=== PATIENT | female | born 1980 | race Caucasian/White ===

== ENCOUNTER 2017-01-02 16:32 | Outpatient (CLI) | payer BC | END 2017-01-02 17:27 | disposition home or self-care (01) | LOC: FBPOP 16:32 | PROVIDERS: ATTEND Obstetrics & Gynecology | DX: O99.89 Other specified diseases and conditions complicating pregnancy, childbirth and the puerperium (principal); R51 Headache; Z3A.35 35 weeks gestation of pregnancy; Z87.898 Personal history of other specified conditions | CPT/HCPCS: 59025; 81050; 84156; 87081; 99215 ==

== ENCOUNTER 2017-01-23 22:02 | Inpatient (IN) | payer BC ==
[2017-01-23 22:44] LABS: Appearance,Urine Clear (Clear); Bilirubin,Urine Negative (Negative); Glucose,Urine (UA) Negative (Negative); Ketones,Urine Trace (Negative); Leukocyte Esterase,Urine Negative (Negative); Nitrite,Urine Negative (Negative); Protein,Urine Negative (Negative); Specific Gravity,Urine 1.004 (1.001-1.035); UA Billing (MACRO vs. MICRO) CHEM; Urobilinogen,Urine <2.0 mg/dL (<2.0)
[2017-01-23 22:55] LABS: Basophils % (A) 0 %; CH 33.8; CHCM 35.1; Eosinophils # (A) 0.1 k/uL (0-0.7); Eosinophils % (A) 1 %; HCT 40.5 % (34.0-46.0); HDW 2.95; HGB 13.9 gm/dL (11.4-16.0); Luc # (Auto) 0.15; Luc % (Auto) 2; Lymphocytes # (A) 1.5 k/uL (1.0-4.8); Lymphocytes % (A) 19 %; MCH 33.2 pg (25.0-35.0); MCHC 34.3 g/dL (31.0-37.0); MCV 96.9 fL (80.0-100.0); Mean Platelet Volume 10.3; Monocytes # (A) 0.3 k/uL (0-1.0); Monocytes % (A) 4 %; Neutrophils # (A) 5.7 k/uL (1.3-7.7); Neutrophils % (A) 74 %; RBC 4.17 m/uL (3.80-5.40); RDW 15.6 % (11.5-15.5); WBC 7.7 k/uL (3.8-10.6); WBC (Perox) 7.87
[2017-01-23 23:00] LABS: ALT 33 U/L (9-52); AST 23 U/L (14-36); Blood Urea Nitrogen 7 mg/dL (7-17); LDH 438 U/L (313-618); Non-African American GFR(MDRD) >60 (>60 ml/min/1.73 sqM); Uric Acid 7.1 mg/dL (3.7-7.4)
[2017-01-23] MEDS ORDERED: LACTATED RINGERS 1,000 ML IV ONE (23:43)
[2017-01-24 01:29] LABS: Basophils % (A) 0 %; CH 33.7; CHCM 34.6; Eosinophils # (A) 0.1 k/uL (0-0.7); Eosinophils % (A) 1 %; HDW 2.88; HGB 13.8 gm/dL (11.4-16.0); Luc # (Auto) 0.11; Luc % (Auto) 2; Lymphocytes # (A) 1.4 k/uL (1.0-4.8); Lymphocytes % (A) 20 %; MCH 32.9 pg (25.0-35.0); MCHC 33.5 g/dL (31.0-37.0); MCV 98.2 fL (80.0-100.0); Macrocytosis Slight; Mean Platelet Volume 10.3; Monocytes # (A) 0.3 k/uL (0-1.0); Monocytes % (A) 4 %; Neutrophils # (A) 5.2 k/uL (1.3-7.7); Neutrophils % (A) 74 %; RBC 4.18 m/uL (3.80-5.40); RDW 15.6 % (11.5-15.5); WBC 7.1 k/uL (3.8-10.6); WBC (Perox) 7.61
[2017-01-24 01:36] LABS: INR 0.9 (<1.1); Partial Thromboplastin Time 22.5 sec (22.0-30.0); Prothrombin Time 9.5 sec (9.0-12.0)
[2017-01-24] MEDS: MISOPROSTOL 25 MCG TAB VAGINAL SCH ×2 (07:30→10:33)
--- NOTE | 2017-01-24 08:00 | P.HPOB ---
History of Present Illness H&P Date: 01/24/17 This is a 36-year-old white female 3 para 1011 EDC 02/04/2017 at 38-4/7 weeks' gestation. Patient presented with a history of chronic hypertension, on labetalol 100 mg 3 times daily. She has been taking her blood pressures at home , and noticed last night her blood pressure to be 170 over 107. She presented to labor and delivery at which time her blood pressure was noted to be 181/95. Fetus is been active throughout the . She denies fluid leakage or vaginal bleeding. She has visual disturbances in the periphery of both eyes, but denies headache or right upper quadrant pain. Past surgical history is significant for cold knife conization of the cervix 2004, breast reduction 2010. Current medications labetalol 100 mg 3 times daily, vitamins daily, Synthroid 88 MCG daily. Past obstetric history: Blood type is O+, rubella status immune. Group B strep cultures negative, gonorrhea and chlamydia cultures negative, Pap smear negative. HIV testing negative. One-hour Glucola 147, three-hour GTT within normal limits. Informed received testing negative. Social history patient is , she is a nonsmoker, she denies alcohol or drug use. ALLERGIES none known. Medical history is significant for chronic hypertension and hypothyroidism. On exam this is a pleasant white female, 5 foot 3 inches, 240 pounds, blood pressure currently 147/87. Patient is afebrile. Blood pressures through the night have ranged from the 160s to 140s over 60s to 90s range. Chest is clear in all duenas. Extremities reveal +1 edema. There are 1+ reflexes noted. Fundal height is 38 cm, infant is vertex to Sam's maneuvers. heart rate is in the 140s with overall good variability, reactive NST noted previously. Cervix is 1 cm dilated, posterior, -3 station, vertex presentation , 50% effaced. I have attempted artificial amniorrhexis 3 times without success. Therefore Cytotec 25 MCG's is placed posterior to the cervix in an attempt to begin induction. Labs include platelets of 145,000, elevated uric acid at 7.1, the remainder of the labs are within normal limits. Impression: 38-4/7 weeks intrauterine , chronic hypertension with superimposed preeclampsia, unfavorable cervix. Plan: Cytotec per hospital protocol. I will attempt artificial amniorrhexis later in the morning. Anticipating normal spontaneous vaginal delivery. Close attention to maternal blood pressure with pharmaceutical intervension as needed. Anesthesia staff aware. Review of Systems Negative except as in HPI Past Medical History Past Medical History: Hypertension, Thyroid Disorder History of Any Multi-Drug Resistant Organisms: None Reported Past Surgical History: No Surgical Hx Reported Additional Past Surgical History / Comment(s): breast reduction 2010, cold knife conization of the cervix 2004 Past Anesthesia/Blood Transfusion Reactions: Postoperative Nausea & Vomiting ( PONV) Past Psychological History: No Psychological Hx Reported Smoking Status: Never smoker Past Alcohol Use History: None Reported Past Drug Use History: None Reported - Past Family History Father Family Medical History: Hypertension Mother Family Medical History: Hypertension Medications and Allergies Home Medications Medication Instructions Recorded Confirmed Type Levothyroxine Sodium [Synthroid] 88 mcg PO DAILY 06/03/16 01/23/17 History Pnv with Ca,No.72/Iron/FA 1 each PO DAILY 06/03/16 01/23/17 History [ Plus Tablet] Labetalol [Trandate] 100 mg PO TID 01/23/17 01/23/17 History Allergies Allergy/AdvReac Type Severity Reaction Status Date / Time No Known Allergies Allergy Verified 01/23/17 22:12 Exam - Vital Signs Vital signs: Vital Signs BP 01/23/17 23:43 161/76 Intake and Output 01/23/17 01/24/17 01/24/17 22:59 06:59 14:59 Other: # Voids 2 Weight 108.862 kg See my dictation, please Results Result Diagrams: 01/24/17 00:00 01/23/17 22:40 Abnormal Lab Results - Last 24 Hours (Table) 01/23/17 01/23/17 01/24/17 Range/Units 22:36 22:40 00:00 RDW 15.6 H 15.6 H (11.5-15.5) % Plt Count 148 L 145 L (150-450) k/uL Urine Ketones Trace H (Negative) Assessment and Plan Plan: I am unable to perform artificial amniorrhexis due to unfavorable cervix. Cytotec 25 MCG's has therefore been placed, and we will repeat this every 3 hours until active labor. Anesthesia staff is aware of the patient's status. Anticipating normal spontaneous vaginal delivery. Time with Patient: Greater than 30
[2017-01-24] MEDS ORDERED: OXYTOCIN 10 UNIT/ML 1 ML VIAL IM PRN (09:23)
[2017-01-24] MEDS ORDERED: CARBOPROST TROMETHAMINE 250 MCG/ML 1 ML AMP IM PRN (09:23)
[2017-01-24] MEDS ORDERED: TERBUTALINE 1 MG/ML VIAL SQ PRN (09:23)
[2017-01-24] MEDS ORDERED: METHYLERGONOVINE 0.2 MG/ML 1 ML AMP IM PRN (09:23)
[2017-01-24] MEDS ORDERED: LIDOCAINE 1% (PF) 10 MG/ML (30 ML SDV) SQ PRN (09:23)
[2017-01-24] MEDS ORDERED: LACTATED RINGERS 1,000 ML IV SCH (09:30)
[2017-01-24] MEDS: LACTATED RINGERS 1,000 ML IV SCH ×2 (10:43→15:00)
[2017-01-24] MEDS: OXYTOCIN 30 UNITS/500 ML NS 30 UNIT in SALINE 1 500ML.BAG IV SCH (12:10)
[2017-01-24] MEDS ORDERED: SODIUM CHLORIDE 0.9% 100 ML BAG ONE (13:40)
[2017-01-24] MEDS ORDERED: fentaNYL (PF) 50 MCG/ML 5 ML AMP ONE (13:40)
[2017-01-24] MEDS ORDERED: BUPIVACAINE (PF) 0.25% 30 ML VIAL ONE (13:40)
[2017-01-24] MEDS ORDERED: BUPIVACAINE (PF) 0.25% 25 ML, fentaNYL (PF) 200 MCG in SODIUM CHLORIDE 0.9% 71 ML EPIDURAL ONE (15:46)
--- NOTE | 2017-01-24 18:01 | P.PROBDLV ---
Vaginal Delivery Note - . Vaginal Delivery Note: This is a 36-year-old white female 3 para 1011 EDC 02/04/2017 at 38-4/7 weeks' gestation. Patient presented to labor and delivery with a blood pressure at home of 170/107. On admission here, her blood pressure was noted to be 181/95. Labs were drawn, and this included an elevated uric acid and a platelet count of 145,000. Decision was made to proceed with delivery. Please see my admitting H&P for details. Cervix was unfavorable, Cytotec was placed 2, 25 MCG's intravaginally. Artificial amniorrhexis was then performed for clear fluid. Oxytocin was started and titrated per hospital protocol. Epidural was requested and this was placed without difficulty. Blood pressures in labor settled into the 140s over 70s range. Patient became cut lately dilated at 741. The perineal body was prepped and draped in usual sterile fashion. heart tones were reassuring with variable decelerations noted in the lateral part of the first stage of labor. With 3 pushes, 's head delivered occiput anterior and she restituted accordingly. There was a nuchal cord 1 that was reduced on the perineal body. The oropharynx, nasopharynx and external nares were bulb suctioned on the perineal body. Left or anterior shoulder was gently and easily delivered. Patient was officially delivered of a liveborn female at 1744 hours. Umbilical cord was doubly clamped and ligated, she was handed to waiting nurses for evaluation where scores of 9 and 9 at one and 5 minutes respectively were given. Placenta delivered spontaneously, it was noted to be small, but intact with trivascular cord at 1747 hours. On the perineal body was redraped. Inspection of the cervix, vagina, perineum, periurethral, and perirectal areas revealed a small 1 cm right inner labial laceration that was repaired in the usual fashion with a single [id number] suture of 3-0 Vicryl suture. Fundus is firm and in the midline, symmetric and 18 week size upon completion of delivery. Blood pressure 142/74 at the end of delivery. All sponge needle and enhancement counts are correct. weighed 2620 g or 5 lbs. 12 oz. The and family were allowed to begin the bonding experience in the LDR. Blood pressures will be monitored at this time. Consideration for magnesium sulfate will be given, however blood pressure stabilization at this time is noted. We will restart labetalol 100 mg orally twice daily.
[2017-01-24] MEDS ORDERED: Acetaminophen-Codeine 300-30mg TAB PO PRN (18:02)
[2017-01-24] MEDS ORDERED: ACETAMINOPHEN TAB 325 MG TAB PO PRN (18:02)
[2017-01-24] MEDS ORDERED: HYDROCORTISONE 2.5% RECTAL CREAM 30 GM TUBE RECTAL PRN (18:02)
[2017-01-24] MEDS ORDERED: diphenhydrAMINE 50 MG CAP PO PRN (18:02)
[2017-01-24] MEDS ORDERED: LANOLIN CREAM 5 GM TUBE TOPICAL PRN (18:02)
[2017-01-24] MEDS ORDERED: diphenhydrAMINE 25 MG CAP PO PRN (18:02)
[2017-01-24] MEDS ORDERED: WITCH HAZEL 1 EACH MED..PAD TOPICAL PRN (18:02)
[2017-01-24] MEDS ORDERED: SIMETHICONE 80 MG CHEWABLE PO PRN (18:02)
[2017-01-24] MEDS ORDERED: diphenhydrAMINE 50 MG/ML 1 ML VIAL IVP PRN ×2 (18:02)
[2017-01-24] MEDS ORDERED: diphenhydrAMINE ELIXIR 25 MG/10 ML CUP PO PRN (18:02)
[2017-01-24] MEDS ORDERED: ZOLPIDEM 5 MG TAB PO PRN (18:02)
[2017-01-24] MEDS ORDERED: BENZOCAINE/MENTHOL SPRAY 1 GM/SPRAY AEROSOL TOPICAL PRN (18:02)
[2017-01-24] MEDS: IBUPROFEN 600 MG TAB PO PRN (18:30)
[2017-01-24] MEDS: SENNOSIDES-DOCUSATE SODIUM 1 EACH TAB PO SCH (21:08)
[2017-01-24] MEDS: LABETALOL 100 MG TAB PO SCH (21:08)
[2017-01-25] MEDS: OXYTOCIN 30 UNITS/500 ML NS 30 UNIT in SALINE 1 500ML.BAG IV SCH ×3 (00:57→16:40)
[2017-01-25] MEDS: IBUPROFEN 600 MG TAB PO PRN (08:24)
[2017-01-25] MEDS: LABETALOL 100 MG TAB PO SCH (08:24)
[2017-01-25] MEDS: SENNOSIDES-DOCUSATE SODIUM 1 EACH TAB PO SCH (08:24)
--- NOTE | 2017-01-25 08:33 | P.DS ---
Providers Date of admission: 01/24/17 09:18 Expected date of discharge: 01/25/17 Attending physician: Rhianna Apodaca Primary care physician: Stated None Hospital Course: This is a 36-year-old white female 3 para 1011 EDC 02/04/2017 at 38-4/7 weeks' gestation. Patient presented from home with a blood pressure of 170/ 107. Blood pressure on admission was noted to be 181/95. Patient was admitted and induction was started, history of chronic hypertension with superimposed preeclampsia. Uric acid was elevated at 7.1, platelets 145,000, please see my dictated history and physical for details. Cervix was unfavorable, and therefore Cytotec 25 MCG's was placed intravaginally 2. Spontaneous labor then commenced. Artificial amniorrhexis revealed clear fluid. Oxytocin was started and titrated per hospital protocol. Patient went on to deliver a liveborn female with scores of 9 and 9 at one and 5 minutes respectively. There was a nuchal cord 1 that was easily reduced, estimated blood loss 300 mL, please see my dictated delivery note for details. female weighed 5 lbs. 12 oz. or 2620 g. This morning the patient is doing well. She has been placed back on labetalol, 100 mg, twice daily. Blood pressure this morning is 120s over 70s. She denies headache, visual changes or right upper quadrant pain. There is minimal to moderate lochia rubra. Her reflexes are normal. +1 lower extremity edema. Breasts are not engorged. Fundus is firm in the midline, symmetric, 18 week size. Perineal body is clean and dry. Patient is therefore being discharged home today in good condition. She will continue her labetalol, 100 mg, twice daily, a prescription is given. She will continue her Synthroid daily. I reminded her to use uzxj-zod-ebikwtt ibuprofen products as needed for pain, 200 mg pills, 3 every 6 hours when necessary. She will call with any headache visual changes or right upper quadrant pain. She will call with any blood pressures above the 140s over 80s range. She does take her blood pressure once daily at home and is quite familiar with this process. will follow-up with the clutch rebuilder as recommended. We have reviewed briefly her options for contraception, she and her are contemplating facetectomy, local providers information is provided. Continue vitamin daily. Return to the office in 2 weeks for blood pressure check or as needed. Patient Condition at Discharge: Good Plan - Discharge Summary Discharge Medication List Levothyroxine Sodium [Synthroid] 88 mcg PO DAILY 06/03/16 [History] Pnv with Ca,No.72/Iron/FA [ Plus Tablet] 1 each PO DAILY 06/03/16 [ History] Labetalol [Trandate] 100 mg PO TID 01/23/17 [History] Follow up Appointment(s)/Referral(s): Rhianna Apodaca MD [STAFF PHYSICIAN] - 2 Weeks Discharge Disposition: HOME SELF-CARE
[2017-01-25 11:19] VITALS: PULSE 84
[2017-01-25] MEDS: LEVOTHYROXINE 88 MCG TAB PO SCH ×2 (12:31→12:32)
[2017-01-25 16:39] VITALS: BP 139/86; RESP 18; TEMP 98.5
== END 2017-01-25 19:30 | disposition home or self-care (01) | DRG 774 ==
LOC: FBPOP 22:02 → 4FBP 23:31 → OBSVTOIN 01-24 09:18
PROVIDERS: ADMIT Obstetrics & Gynecology; ATTEND Obstetrics & Gynecology
PROC: 3E0P7GC Introduction of Other Therapeutic Substance into Female Reproductive, Via Natural or Artificial Opening (ICD-10-PCS; principal; 2017-01-24)
PROC: 10907ZC Drainage of Amniotic Fluid, Therapeutic from Products of Conception, Via Natural or Artificial Opening (ICD-10-PCS; principal; 2017-01-24)
PROC: 00HU33Z Insertion of Infusion Device into Spinal Canal, Percutaneous Approach (ICD-10-PCS; principal; 2017-01-24)
PROC: 10E0XZZ Delivery of Products of Conception, External Approach (ICD-10-PCS; principal; 2017-01-24)
PROC: 3E0R3CZ (ICD-10-PCS; principal; 2017-01-24)
DX: O11.4 Pre-existing hypertension with pre-eclampsia, complicating childbirth (principal); O10.02 Pre-existing essential hypertension complicating childbirth; E03.9 Hypothyroidism, unspecified; Z37.0 Single live birth; O76 Abnormality in fetal heart rate and rhythm complicating labor and delivery; O70.0 First degree perineal laceration during delivery; Z3A.38 38 weeks gestation of pregnancy; O99.284 Endocrine, nutritional and metabolic diseases complicating childbirth; O69.81X0 Labor and delivery complicated by cord around neck, without compression, not applicable or unspecified; Z79.899 Other long term (current) drug therapy
CPT/HCPCS: 59025; 81003; 82565; 83615; 84450; 84460; 84520; 84550; 85025; 85610; 85730; 88307; 99213

== ENCOUNTER 2017-01-27 20:03 | Emergency (ER) | payer BC ==
[2017-01-27] MEDS ORDERED: hydrALAZINE HCL 20 MG/ML 1 ML VIAL IVP STA (20:33)
--- NOTE | 2017-01-27 20:35 | ED ---
General Adult HPI - General Chief complaint: Recheck/Abnormal Lab/Rx Stated complaint: Post HTN (01/24/17) Time Seen by Provider: 01/27/17 20:27 Source: patient, RN notes reviewed Mode of arrival: ambulatory Limitations: no limitations - History of Present Illness Initial comments: Patient is a pleasant 36-year-old female presenting to the emergency department complaining of high blood pressure. Patient had delivery done 3 days ago. Patient was diagnosed with hypertension associated with . There was some concern for early preeclampsia and therefore patient was induced. Patient did have vaginal delivery without complication. Blood pressure was improved to 140/80 at discharge. Blood pressure at home tonight was approximately 170/109. Patient did take her Lopressor at 5:30 and an additional dose at 6:30. Patient complains only of mild headache, no other complaints. No bleeding. No weakness or confusion. - Related Data Home Medications Medication Instructions Recorded Confirmed Levothyroxine Sodium [Synthroid] 88 mcg PO DAILY 06/03/16 01/27/17 Pnv with Ca,No.72/Iron/FA 1 tab PO DAILY 06/03/16 01/27/17 [ Plus Tablet] Labetalol [Trandate] 100 mg PO BID 01/23/17 01/27/17 Acetaminophen Tab [Tylenol Tab] 1,000 mg PO Q6HR PRN 01/27/17 01/27/17 Allergies Allergy/AdvReac Type Severity Reaction Status Date / Time No Known Allergies Allergy Verified 01/27/17 20:20 Review of Systems ROS Statement: Those systems with pertinent positive or pertinent negative responses have been documented in the HPI. ROS Other: All systems not noted in ROS Statement are negative. Constitutional: Denies: fever Eyes: Denies: eye pain ENT: Denies: ear pain Respiratory: Denies: cough Cardiovascular: Denies: chest pain Endocrine: Denies: fatigue Gastrointestinal: Denies: abdominal pain Genitourinary: Denies: dysuria Musculoskeletal: Denies: back pain Skin: Denies: rash Neurological: Reports: headache (Mild). Denies: weakness, confusion Past Medical History Past Medical History: Hypertension, Thyroid Disorder History of Any Multi-Drug Resistant Organisms: None Reported Past Surgical History: No Surgical Hx Reported Additional Past Surgical History / Comment(s): breast reduction 2010, cold knife conization of the cervix 2004 Past Anesthesia/Blood Transfusion Reactions: Postoperative Nausea & Vomiting ( PONV) Past Psychological History: No Psychological Hx Reported Smoking Status: Never smoker Past Alcohol Use History: None Reported Past Drug Use History: None Reported - Past Family History Father Family Medical History: Hypertension Mother Family Medical History: Hypertension General Exam Limitations: no limitations General appearance: alert, in no apparent distress Head exam: Present: atraumatic, normocephalic Eye exam: Present: normal appearance, PERRL ENT exam: Present: normal oropharynx Neck exam: Present: normal inspection Respiratory exam: Present: normal lung sounds bilaterally Cardiovascular Exam: Present: regular rate, normal rhythm GI/Abdominal exam: Present: soft. Absent: distended, tenderness Extremities exam: Present: normal inspection. Absent: pedal edema, calf tenderness Neurological exam: Present: alert Psychiatric exam: Present: normal affect, normal mood Skin exam: Absent: rash Course Vital Signs 01/27/17 01/27/17 01/27/17 20:10 21:01 21:04 Temperature 98.3 F Pulse Rate 86 86 Pulse Rate [ 86 Lithographic Press Feeder ] Respiratory 20 20 Rate Blood Pressure 186/93 150/75 O2 Sat by Pulse 98 98 Oximetry 01/27/17 01/27/17 01/27/17 21:10 21:21 21:59 Temperature 98 F Pulse Rate 88 94 90 Pulse Rate [ Lithographic Press Feeder ] Respiratory 18 18 Rate Blood Pressure 150/67 155/75 164/72 O2 Sat by Pulse 98 98 97 Oximetry - Reevaluation(s) Reevaluation #1: 01/27/17 21:20 Patient reexamined and resting comfortably in bed without complaint. Blood pressure 155/75. Patient updated on results. 01/27/17 21:28 Case was discussed with Dr. Dorantes, including lab work and blood pressure and liver enzymes, who does recommend a dose of Procardia 20 mg times one and follow-up with the patient tomorrow. She recommends further observation for approximately another hour and make sure blood pressure does not increase over 150/90. 01/27/17 21:29 Patient is advised to discharge she will need to follow-up tomorrow. EKG Findings - EKG Comments: EKG Findings:: Normal sinus rhythm at 84. OK 134. QRS 86. QT 382. QTC 451. Normal axis. Normal QRS. Normal ST-T. Medical Decision Making - Lab Data Result diagrams: 01/27/17 20:25 01/27/17 20:25 Lab Results 01/27/17 01/27/17 01/27/17 Range/Units 20:25 20:25 20:25 WBC 5.9 (3.8-10.6) k/uL RBC 3.87 (3.80-5.40) m/uL Hgb 12.8 (11.4-16.0) gm/dL Hct 38.1 (34.0-46.0) % MCV 98.4 (80.0-100.0) fL MCH 33.1 (25.0-35.0) pg MCHC 33.6 (31.0-37.0) g/dL RDW 15.6 H (11.5-15.5) % Plt Count 157 (150-450) k/uL Neutrophils % 70 % Lymphocytes % 22 % Monocytes % 4 % Eosinophils % 1 % Basophils % 0 % Neutrophils # 4.2 (1.3-7.7) k/uL Lymphocytes # 1.3 (1.0-4.8) k/uL Monocytes # 0.2 (0-1.0) k/uL Eosinophils # 0.1 (0-0.7) k/uL Basophils # 0.0 (0-0.2) k/uL Macrocytosis Slight PT (9.0-12.0) sec INR (<1.1) APTT (22.0-30.0) sec Sodium 141 (137-145) mmol/L Potassium 4.0 (3.5-5.1) mmol/L Chloride 106 (98-107) mmol/L Carbon Dioxide 24 (22-30) mmol/L Anion Gap 11 mmol/L BUN 6 L (7-17) mg/dL Creatinine 0.80 (0.52-1.04) mg/dL Est GFR (MDRD) Af Amer >60 (>60 ml/min/1.73 sqM) Est GFR (MDRD) Non-Af >60 (>60 ml/min/1.73 sqM) Glucose 90 (74-99) mg/dL Uric Acid (3.7-7.4) mg/dL Calcium 9.6 (8.4-10.2) mg/dL Magnesium 2.0 (1.6-2.3) mg/dL Total Bilirubin 0.5 (0.2-1.3) mg/dL AST 51 H (14-36) U/L ALT 59 H (9-52) U/L Alkaline Phosphatase 157 H (38-126) U/L Total Creatine Kinase 60 (30-135) U/L CK-MB (CK-2) 1.6 (0.0-2.4) ng/mL CK-MB (CK-2) Rel Index 2.7 Troponin I <0.012 (0.000-0.034) ng/mL Total Protein 6.3 (6.3-8.2) g/dL Albumin 3.5 (3.5-5.0) g/dL TSH 3.530 (0.465-4.680) mIU/L Free T4 0.76 L (0.78-2.19) ng/dL Free T3 pg/mL 3.3 (2.8-5.3) pg/ml Urine Color Urine Appearance (Clear) Urine pH (5.0-8.0) Ur Specific [place] (1.001-1.035) Urine Protein (Negative) Urine Glucose (UA) (Negative) Urine Ketones (Negative) Urine Blood (Negative) Urine Nitrate (Negative) Urine Bilirubin (Negative) Urine Urobilinogen (<2.0) mg/dL Ur Leukocyte Esterase (Negative) Urine RBC (0-5) /hpf Urine WBC (0-5) /hpf Ur Squamous Epith Cells (0-4) /hpf 01/27/17 01/27/17 01/27/17 Range/Units 20:25 20:25 20:25 WBC (3.8-10.6) k/uL RBC (3.80-5.40) m/uL Hgb (11.4-16.0) gm/dL Hct (34.0-46.0) % MCV (80.0-100.0) fL MCH (25.0-35.0) pg MCHC (31.0-37.0) g/dL RDW (11.5-15.5) % Plt Count (150-450) k/uL Neutrophils % % Lymphocytes % % Monocytes % % Eosinophils % % Basophils % % Neutrophils # (1.3-7.7) k/uL Lymphocytes # (1.0-4.8) k/uL Monocytes # (0-1.0) k/uL Eosinophils # (0-0.7) k/uL Basophils # (0-0.2) k/uL Macrocytosis PT 9.7 (9.0-12.0) sec INR 0.9 (<1.1) APTT 22.5 (22.0-30.0) sec Sodium (137-145) mmol/L Potassium (3.5-5.1) mmol/L Chloride (98-107) mmol/L Carbon Dioxide (22-30) mmol/L Anion Gap mmol/L BUN (7-17) mg/dL Creatinine (0.52-1.04) mg/dL Est GFR (MDRD) Af Amer (>60 ml/min/1.73 sqM) Est GFR (MDRD) Non-Af (>60 ml/min/1.73 sqM) Glucose (74-99) mg/dL Uric Acid 7.4 (3.7-7.4) mg/dL Calcium (8.4-10.2) mg/dL Magnesium (1.6-2.3) mg/dL Total Bilirubin (0.2-1.3) mg/dL AST (14-36) U/L ALT (9-52) U/L Alkaline Phosphatase (38-126) U/L Total Creatine Kinase (30-135) U/L CK-MB (CK-2) (0.0-2.4) ng/mL CK-MB (CK-2) Rel Index Troponin I (0.000-0.034) ng/mL Total Protein (6.3-8.2) g/dL Albumin (3.5-5.0) g/dL TSH (0.465-4.680) mIU/L Free T4 (0.78-2.19) ng/dL Free T3 pg/mL (2.8-5.3) pg/ml Urine Color Light Yellow Urine Appearance Clear (Clear) Urine pH 6.0 (5.0-8.0) Ur Specific [place] 1.003 (1.001-1.035) Urine Protein Negative (Negative) Urine Glucose (UA) Negative (Negative) Urine Ketones Negative (Negative) Urine Blood Moderate H (Negative) Urine Nitrate Negative (Negative) Urine Bilirubin Negative (Negative) Urine Urobilinogen <2.0 (<2.0) mg/dL Ur Leukocyte Esterase Moderate H (Negative) Urine RBC 8 H (0-5) /hpf Urine WBC 13 H (0-5) /hpf Ur Squamous Epith Cells 1 (0-4) /hpf Disposition Clinical Impression: Gestational hypertension Disposition: HOME SELF-CARE Instructions: Preeclampsia (ED), Hypertension (ED) Additional Instructions: Please follow-up tomorrow with Dr. Apodaca. Return for increased blood pressure, increased headaches, abdominal pain, swelling, worsening symptoms or other concerns. Referrals: Leon Pfeiffer III, MD [Primary Care Provider] - 1-2 days Rhianna Apodaca MD [STAFF PHYSICIAN] - 1-2 days
[2017-01-27 20:42] LABS: Appearance,Urine Clear (Clear); Basophils % (A) 0 %; Bilirubin,Urine Negative (Negative); CHCM 34.8; Eosinophils # (A) 0.1 k/uL (0-0.7); Eosinophils % (A) 1 %; Glucose,Urine (UA) Negative (Negative); HCT 38.1 % (34.0-46.0); HDW 2.96; HGB 12.8 gm/dL (11.4-16.0); Ketones,Urine Negative (Negative); Leukocyte Esterase,Urine Moderate (Negative); Luc # (Auto) 0.12; Luc % (Auto) 2; Lymphocytes # (A) 1.3 k/uL (1.0-4.8); Lymphocytes % (A) 22 %; MCH 33.1 pg (25.0-35.0); MCHC 33.6 g/dL (31.0-37.0); MCV 98.4 fL (80.0-100.0); Macrocytosis Slight; Mean Platelet Volume 9.3; Monocytes # (A) 0.2 k/uL (0-1.0); Monocytes % (A) 4 %; Neutrophils # (A) 4.2 k/uL (1.3-7.7); Neutrophils % (A) 70 %; Nitrite,Urine Negative (Negative); Particle Count 1706; Protein,Urine Negative (Negative); RBC 3.87 m/uL (3.80-5.40); RBC,Urine 8 /hpf (0-5); RDW 15.6 % (11.5-15.5); Specific Gravity,Urine 1.003 (1.001-1.035); Squamous Epithelial Cell,Urine 1 /hpf (0-4); UA Billing (MACRO vs. MICRO) MICRO; Urobilinogen,Urine <2.0 mg/dL (<2.0); WBC 5.9 k/uL (3.8-10.6); WBC (Perox) 6.07; WBC,Urine 13 /hpf (0-5)
[2017-01-27] MEDS ORDERED: MAGNESIUM SULFATE-D5W PMX 1 GM in DEXTROSE/WATER 1 100ML.BAG IVPB ONE (20:45)
[2017-01-27 20:53] LABS: ALT 59 U/L (9-52); AST 51 U/L (14-36); Alkaline Phosphatase 157 U/L (38-126); Anion Gap 11 mmol/L; Blood Urea Nitrogen 6 mg/dL (7-17); Calcium 9.6 mg/dL (8.4-10.2); Carbon Dioxide 24 mmol/L (22-30); Chloride 106 mmol/L (98-107); Glucose 90 mg/dL (74-99); Non-African American GFR(MDRD) >60 (>60 ml/min/1.73 sqM); Sodium 141 mmol/L (137-145); Total Bilirubin 0.5 mg/dL (0.2-1.3); Total Protein 6.3 g/dL (6.3-8.2)
[2017-01-27 20:56] LABS: INR 0.9 (<1.1); Partial Thromboplastin Time 22.5 sec (22.0-30.0); Prothrombin Time 9.7 sec (9.0-12.0)
[2017-01-27 21:02] LABS: Creatine Kinase 60 U/L (30-135)
[2017-01-27 21:11] VITALS: RESP 18
[2017-01-27 21:16] LABS: Creatine Kinase MB 1.6 ng/mL (0.0-2.4); Troponin I <0.012 ng/mL (0.000-0.034)
[2017-01-27] MEDS ORDERED: NIFEdipine 10 MG CAP PO ONE (21:27)
[2017-01-27 22:02] VITALS: BP 164/72; PULSE 90; TEMP 98
== END 2017-01-27 22:03 | disposition home or self-care (01) ==
LOC: EC 20:03
DX: O14.95 Unspecified pre-eclampsia, complicating the puerperium (principal); O99.285 Endocrine, nutritional and metabolic diseases complicating the puerperium; E07.9 Disorder of thyroid, unspecified; Z79.52 Long term (current) use of systemic steroids; Z79.899 Other long term (current) drug therapy
CPT/HCPCS: 99283; 96365; 96375; 36415; 93005; 84439; 84481; 80053; 82550; 82553; 83735; 84443; 84550; 84484; 85025; 85610; 85730; 81001; J0360; J3475

== ENCOUNTER → 2017-02-11 | Outpatient (CLI) | payer BC ==
[2017-02-11 09:50] LABS: ALT 135 U/L (9-52); AST 72 U/L (14-36); Alkaline Phosphatase 86 U/L (38-126); Anion Gap 12 mmol/L; Blood Urea Nitrogen 9 mg/dL (7-17); Calcium 9.8 mg/dL (8.4-10.2); Carbon Dioxide 26 mmol/L (22-30); Chloride 105 mmol/L (98-107); Glucose 80 mg/dL (74-99); Non-African American GFR(MDRD) >60 (>60 ml/min/1.73 sqM); Potassium 4.5 mmol/L (3.5-5.1); Sodium 143 mmol/L (137-145); Total Bilirubin 0.8 mg/dL (0.2-1.3); Total Protein 7.1 g/dL (6.3-8.2)
[2017-02-11 09:51] LABS: Basophils % (A) 0 %; CH 32.9; CHCM 33.6; Eosinophils # (A) 0.1 k/uL (0-0.7); Eosinophils % (A) 1 %; Luc # (Auto) 0.15; Luc % (Auto) 3; Lymphocytes # (A) 1.1 k/uL (1.0-4.8); Lymphocytes % (A) 21 %; MCH 32.9 pg (25.0-35.0); MCHC 33.4 g/dL (31.0-37.0); MCV 98.4 fL (80.0-100.0); Mean Platelet Volume 9.7; Monocytes # (A) 0.2 k/uL (0-1.0); Monocytes % (A) 4 %; Neutrophils # (A) 3.8 k/uL (1.3-7.7); Neutrophils % (A) 71 %; RBC 4.57 m/uL (3.80-5.40); RDW 13.6 % (11.5-15.5); WBC 5.4 k/uL (3.8-10.6); WBC (Perox) 5.22
== END | disposition home or self-care (01) ==
LOC: LABWHC1 08:24
PROVIDERS: ATTEND Family Medicine
DX: R10.11 Right upper quadrant pain (principal); R94.5 Abnormal results of liver function studies
CPT/HCPCS: 36415; 80053; 85025

== ENCOUNTER 2017-02-13 14:57 | Emergency (ER) | payer BC ==
[2017-02-13 16:14] VITALS: RESP 18
--- NOTE | 2017-02-13 16:41 | ED ---
General Adult HPI - General Chief complaint: Abdominal Pain Stated complaint: nausea/pain under right rib Time Seen by Provider: 02/13/17 16:32 Source: patient, family, RN notes reviewed, old records reviewed Mode of arrival: ambulatory Limitations: no limitations - History of Present Illness Initial comments: 37-year-old female presenting for right upper quadrant and epigastric abdominal pain. Patient states that the pain began about 2-1/2 weeks ago. Has been gradually worsening. She states that she followed up with her regular doctor who performed some lab work which showed some mildly elevated LFTs. She states given that her symptoms persisted today she called her primary doctor recommended she come to the ER for further evaluation. States that she did have a baby about 2-1/2 weeks ago. Baby is healthy and delivery was uncomplicated. She did have gestational hypertension during her but otherwise no complications with her . She denies any chest pain or shortness of breath associated. She denies any nausea or vomiting or diarrhea associated. - Related Data Home Medications Medication Instructions Recorded Confirmed Pnv with Ca,No.72/Iron/FA 1 tab PO DAILY 06/03/16 02/13/17 [ Plus Tablet] Ibuprofen [Advil] 200 mg PO Q8HR PRN 02/13/17 02/13/17 Levothyroxine Sodium [Synthroid] 75 mcg PO DAILY 02/13/17 02/13/17 NIFEdipine XL [Procardia Xl] 90 mg PO DAILY 02/13/17 02/13/17 Previous Rx's Medication Instructions Recorded Omeprazole [PriLOSEC] 20 mg PO AC-BRKFST 30 Days 02/13/17 Allergies Allergy/AdvReac Type Severity Reaction Status Date / Time No Known Allergies Allergy Verified 02/13/17 16:37 Review of Systems ROS Statement: Those systems with pertinent positive or pertinent negative responses have been documented in the HPI. ROS Other: All systems not noted in ROS Statement are negative. Past Medical History Past Medical History: Hypertension, Thyroid Disorder History of Any Multi-Drug Resistant Organisms: None Reported Past Surgical History: No Surgical Hx Reported Additional Past Surgical History / Comment(s): breast reduction 2010, cold knife conization of the cervix 2004 Past Anesthesia/Blood Transfusion Reactions: Postoperative Nausea & Vomiting ( PONV) Past Psychological History: No Psychological Hx Reported Smoking Status: Never smoker Past Alcohol Use History: None Reported Past Drug Use History: None Reported - Past Family History Father Family Medical History: Hypertension Mother Family Medical History: Hypertension General Exam - General Exam Comments Initial Comments: General: Awake and Alert. No acute distress. Does not appear acutely ill. Eyes: LASHAUN, EOM intact. No nystagmus. No scleral icterus. HENT: Atraumatic, normocephalic. Mucous membranes moist. Trachea midline. Neck: The neck is supple, there is no tenderness or JVD. Cardiovascular: Regular rate and rhythm. No murmur, rub, or gallop is appreciated. Distal pulses intact. Respiratory: Lungs are clear to auscultation bilaterally. No wheezes, rales, rhonchi. No respiratory distress. Gastrointestinal: Soft, Mild RUQ tenderness. No rebound or guarding. Non- distended. No masses or organomegaly noted. No CVA tenderness. Musculoskeletal: No tenderness. Normal ROM. No gross deformity. No strength deficits. Neurological: A&Ox3. CN II-XII grossly intact, There are no obvious motor or sensory deficits. Coordination appears grossly intact. Speech is normal. Skin: Skin is warm and dry and no rashes or lesions are noted. Psychiatric: Cooperative, appropriate mood & affect, normal judgment. Limitations: no limitations Course Vital Signs 02/13/17 02/13/17 16:12 18:40 Temperature 97.8 F 97.7 F Pulse Rate 112 H 106 H Respiratory 18 18 Rate Blood Pressure 177/97 140/83 O2 Sat by Pulse 99 98 Oximetry Medical Decision Making - Medical Decision Making 37-year-old female presenting for right upper quadrant and epigastric abdominal pain. Exam with mild right upper quadrant tenderness but no evidence of acute peritonitis. Per review of records she does mildly elevated AST and ALT. Repeat lab work and abdominal ultrasound imaging ordered today. She is noted to have some hypertension, but this is a chronic issue for her. She is taking antihypertensive medications. She states she is following up with her primary care doctor for this. Patient declines any pain medication at this time. She denies any nausea or vomiting associated. Lab work stable CBC, stable BMP. LFTs with mildly elevated AST and ALT without significant changes from recent values. Abdominal ultrasound without evidence of biliary obstructive or acute process. Patient reevaluated, remains stable during her course in ED. Updated on results and imaging. Discussed continued outpatient follow-up with her primary doctor for further management of this and trending of LFTs as well as possible HIDA scan or EGD depending on symptoms progression or improvement. We'll start her on omeprazole for possible gastritis component to her symptoms. Discussed concerning signs symptoms regarding abdominal pain and for immediate return to the ED. Patient and are agreeable with plan and discharge home. - Lab Data Result diagrams: 02/13/17 17:00 02/13/17 17:00 Lab Results 02/13/17 02/13/17 Range/Units 17:00 17:00 WBC 7.7 (3.8-10.6) k/uL RBC 4.99 (3.80-5.40) m/uL Hgb 16.2 H (11.4-16.0) gm/dL Hct 48.1 H (34.0-46.0) % MCV 96.4 (80.0-100.0) fL MCH 32.5 (25.0-35.0) pg MCHC 33.7 (31.0-37.0) g/dL RDW 13.7 (11.5-15.5) % Plt Count 264 (150-450) k/uL Neutrophils % 69 % Lymphocytes % 21 % Monocytes % 6 % Eosinophils % 1 % Basophils % 0 % Neutrophils # 5.3 (1.3-7.7) k/uL Lymphocytes # 1.6 (1.0-4.8) k/uL Monocytes # 0.5 (0-1.0) k/uL Eosinophils # 0.1 (0-0.7) k/uL Basophils # 0.0 (0-0.2) k/uL Sodium 142 (137-145) mmol/L Potassium 4.2 (3.5-5.1) mmol/L Chloride 106 (98-107) mmol/L Carbon Dioxide 22 (22-30) mmol/L Anion Gap 14 mmol/L BUN 9 (7-17) mg/dL Creatinine 0.84 (0.52-1.04) mg/dL Est GFR (MDRD) Af Amer >60 (>60 ml/min/1.73 sqM) Est GFR (MDRD) Non-Af >60 (>60 ml/min/1.73 sqM) Glucose 99 (74-99) mg/dL Calcium 10.1 (8.4-10.2) mg/dL Total Bilirubin 0.8 (0.2-1.3) mg/dL AST 65 H (14-36) U/L ALT 136 H (9-52) U/L Alkaline Phosphatase 107 (38-126) U/L Total Protein 7.7 (6.3-8.2) g/dL Albumin 4.7 (3.5-5.0) g/dL Lipase 101 (23-300) U/L - Radiology Data Radiology results: report reviewed, image reviewed Disposition Clinical Impression: Nonspecific abdominal pain, Elevated LFTs, HTN (hypertension) Disposition: HOME SELF-CARE Condition: Stable Instructions: Abdominal Pain (ED), Hypertension (ED) Additional Instructions: Please continue to follow up with your regular doctor to continue to trend your liver function testing. Prescriptions: Omeprazole [PriLOSEC] 20 mg PO AC-[place] 30 Days Referrals: Leon Pfeiffer III, MD [Primary Care Provider] - 1-2 days Time of Disposition: 18:04
[2017-02-13 17:17] LABS: Basophils % (A) 0 %; CH 33.2; CHCM 34.6; Eosinophils # (A) 0.1 k/uL (0-0.7); Eosinophils % (A) 1 %; HCT 48.1 % (34.0-46.0); HDW 2.92; HGB 16.2 gm/dL (11.4-16.0); Luc # (Auto) 0.19; Luc % (Auto) 3; Lymphocytes # (A) 1.6 k/uL (1.0-4.8); Lymphocytes % (A) 21 %; MCH 32.5 pg (25.0-35.0); MCHC 33.7 g/dL (31.0-37.0); MCV 96.4 fL (80.0-100.0); Mean Platelet Volume 8.8; Monocytes # (A) 0.5 k/uL (0-1.0); Monocytes % (A) 6 %; Neutrophils # (A) 5.3 k/uL (1.3-7.7); Neutrophils % (A) 69 %; RBC 4.99 m/uL (3.80-5.40); RDW 13.7 % (11.5-15.5); WBC 7.7 k/uL (3.8-10.6); WBC (Perox) 7.78
[2017-02-13 17:25] LABS: ALT 136 U/L (9-52); AST 65 U/L (14-36); Alkaline Phosphatase 107 U/L (38-126); Anion Gap 14 mmol/L; Blood Urea Nitrogen 9 mg/dL (7-17); Calcium 10.1 mg/dL (8.4-10.2); Carbon Dioxide 22 mmol/L (22-30); Chloride 106 mmol/L (98-107); Glucose 99 mg/dL (74-99); Non-African American GFR(MDRD) >60 (>60 ml/min/1.73 sqM); Potassium 4.2 mmol/L (3.5-5.1); Sodium 142 mmol/L (137-145); Total Bilirubin 0.8 mg/dL (0.2-1.3); Total Protein 7.7 g/dL (6.3-8.2)
--- NOTE | 2017-02-13 17:57 | US ---
EXAMINATION TYPE: US abdomen limited DATE OF EXAM: 02/13/2017 5:30 PM COMPARISON: NONE CLINICAL HISTORY: RUQ pain. EXAM MEASUREMENTS: Liver Length: 14.5 cm Gallbladder Wall: 0.4 cm CBD: 0.4 cm Right Kidney: 11.2 x 3.8 x 4.4 cm TECHNOLOGIST IMPRESSION: Pancreas: visualized portion wnl Liver: cyst left lobe measuring 2.9 x 1.7 x 2.0 cm Gallbladder: no stones seen, thickened wall could be due to not being NPO for 6 to 8 hours. Evidence for sonographic Marquez's sign: No CBD: wnl Right Kidney: No hydronephrosis or masses seen IMPRESSION: Incidental 3 x 2 cm cyst in the left lobe of the liver. No gallstones or dilated ducts.
[2017-02-13 18:41] VITALS: BP 140/83; PULSE 106; TEMP 97.7
== END 2017-02-13 18:40 | disposition home or self-care (01) ==
LOC: EC 14:57
DX: O90.89 Other complications of the puerperium, not elsewhere classified (principal); R10.9 Unspecified abdominal pain; R94.5 Abnormal results of liver function studies; O13.5 Gestational [pregnancy-induced] hypertension without significant proteinuria, complicating the puerperium; O99.285 Endocrine, nutritional and metabolic diseases complicating the puerperium; E07.9 Disorder of thyroid, unspecified; Z79.899 Other long term (current) drug therapy
CPT/HCPCS: 36415; 76705; 80053; 83690; 85025; 99284

== ENCOUNTER 2017-03-03 18:00 | Emergency (ER) | payer BC ==
--- NOTE | 2017-03-03 20:11 | US ---
EXAMINATION TYPE: US venous doppler duplex LE LT DATE OF EXAM: 03/03/2017 6:54 PM COMPARISON: US in PACS CLINICAL HISTORY: Pain, occasional swelling,? Wiley's cyst. Pt states left leg pain SIDE PERFORMED: Left TECHNIQUE: The lower extremity deep venous system is examined utilizing real time linear array sonog pierre with graded compression, doppler sonography and color-flow sonography. VESSELS IMAGED: External Iliac Vein (EIV) Common Femoral Vein Deep Femoral Vein Greater Saphenous Vein * Femoral Vein Popliteal Vein Small Saphenous Vein * Proximal Calf Veins (* superficial vessels) Left Leg: Negative for DVT, no evidence of Wiley's Cyst IMPRESSION: 1. No left lower extremity venous thrombosis. 2. No popliteal cyst at the level of the palpable region
[2017-03-03 20:23] VITALS: BP 145/70; PULSE 99; RESP 18; TEMP 97.6
--- NOTE | 2017-03-03 20:36 | ED ---
General Adult HPI - General Chief complaint: Extremity Problem,Nontraumatic Stated complaint: leg pain and swelling Time Seen by Provider: 03/03/17 18:40 Source: patient, RN notes reviewed, old records reviewed Mode of arrival: ambulatory Limitations: no limitations - History of Present Illness Initial comments: Chief complaint history of present illness this is a 37-year-old female here for complaint of on-again off-again discomfort and swelling to her left leg. Currently there is no swelling. She complains discomfort posterior left knee occasionally to the calf area. The patient also reports that she delivered a baby 5 weeks ago. That time she was having trouble with blood pressure. She did arrive today with elevated blood pressure of 151 of 105. The patient did take extra Lopressor at home prior to coming emergency room. While in emergency room the patient's blood pressure on recheck was 169/74 and again repeated at 145/70. Patient reports at home was in the 130s systolic range. Patient states that when she comes emergency room she does get anxious. Otherwise not having any headache or dizziness or any neuro deficits. Patient had hypertension before as well. - Related Data Home Medications Medication Instructions Recorded Confirmed Ibuprofen [Advil] 200 mg PO Q8HR PRN 02/13/17 03/03/17 Levothyroxine Sodium [Synthroid] 88 mcg PO DAILY 03/03/17 03/03/17 Lisinopril-Hctz 10-12.5 mg 1 tab PO DAILY 03/03/17 03/03/17 [Zestoretic 10-12.5] Allergies Allergy/AdvReac Type Severity Reaction Status Date / Time No Known Allergies Allergy Verified 03/03/17 18:48 Review of Systems ROS Statement: Those systems with pertinent positive or pertinent negative responses have been documented in the HPI. Review of systems no headache or visual acuity changes no stiff neck no chest pain no palpitations no shortness of breath no GI/ problems. Her only complaint other than elevated blood pressure after getting here with problem with her left leg as described in the chief complaint. All systems were reviewed past medical processing significant for hypertension prior to during and soon after . She also has hypothyroidism. Patient denies any surgeries. She has had breast reductions. The patient's family history no cancers. Nonsmoker, no ALLERGIES, drink alcohol socially. ROS Other: All systems not noted in ROS Statement are negative. Past Medical History Past Medical History: Hypertension, Thyroid Disorder History of Any Multi-Drug Resistant Organisms: None Reported Past Surgical History: No Surgical Hx Reported Additional Past Surgical History / Comment(s): breast reduction 2010, cold knife conization of the cervix 2004 Past Anesthesia/Blood Transfusion Reactions: Postoperative Nausea & Vomiting ( PONV) Past Psychological History: No Psychological Hx Reported Smoking Status: Never smoker Past Alcohol Use History: None Reported Past Drug Use History: None Reported - Past Family History Father Family Medical History: Hypertension Mother Family Medical History: Hypertension General Exam - General Exam Comments Initial Comments: General: The patient is awake and alert, in no distress, and does not appear acutely ill. Chief complaint is discomfort on again off again to her left leg. Occasionally swollen and the swelling goes away. Vital signs show temperature 98.1 pulse 90 respiratory rate 20 pulse ox 99% room air blood pressure 151/105. This was repeated several times and after being in emergency room for approximately one hour was 145/70. The patient took extra Lopressor prior to coming to emergency room this evening. Eye: Pupils are equal, round and reactive to light, extra-ocular movements are intact ; there is normal conjunctiva bilaterally. No signs of icterus. Ears, nose, mouth and throat: There are moist mucous membranes and no oral lesions. Neck: The neck is supple, there is no tenderness . Cardiovascular: There is a regular rate and rhythm. No murmur, rub or gallop is appreciated. Respiratory: Lungs are clear to auscultation, respirations are non-labored, breath sounds are equal. No wheezes, stridor, rales, or rhonchi. Gastrointestinal: No complaint of abdominal pain no complaint of nausea vomiting or diarrhea. Back: No complaint of back pain. No pain with palpation. Musculoskeletal: Normal ROM, no tenderness, There is no pedal edema. Normal range of motion pain with varus valgus or drawer testing of the knee. No bruises noted. There is no calf tenderness or swelling. Sensation intact. Pulses equal bilaterally 2+ . Occasional left leg swelling currently not swollen. Occasional pain in the left popliteal region and lateral left leg. Ultrasound will be done to evaluate DVT or wiley cyst. Neurological: No neuro deficits, no focal or lateralizing findings. Skin: No rashes, no bruising. Limitations: no limitations Course Vital Signs 03/03/17 03/03/17 03/03/17 18:05 19:00 20:22 Temperature 98.1 F 97.6 F Pulse Rate 90 99 Respiratory 20 18 Rate Blood Pressure 151/105 169/79 145/70 O2 Sat by Pulse 99 100 Oximetry Medical Decision Making - Medical Decision Making Medical decision making the patient had an ultrasound a left leg was done and reviewed by radiologist his final impression is no evidence of DVT, no evidence of Wiley's cyst. As read by Dr. Ross. The patienst blood pressure was repeated and last measured at 145/70. Final blood pressure check on discharge to be made. Patient was advised to continue watching her blood pressure closely. Use Tylenol or ibuprofen for muscle aches and pains follow-up with family physician. Disposition Clinical Impression: Left leg pain Disposition: HOME SELF-CARE Condition: Fair Instructions: Leg Pain (ED) Additional Instructions: Take ibuprofen or Tylenol for pain. Had blood pressure rechecked frequently and if elevated return emergency room or follow-up with family physician. Take extra Lopressor as directed by your doctor. Time of Disposition: 20:35
== END 2017-03-03 21:00 | disposition home or self-care (01) ==
LOC: EC 18:00
DX: M79.605 Pain in left leg (principal); M79.89 Other specified soft tissue disorders; I10 Essential (primary) hypertension; E07.9 Disorder of thyroid, unspecified; Z79.899 Other long term (current) drug therapy
CPT/HCPCS: 99284

== ENCOUNTER 2017-03-06 17:25 | Observation (INO) | payer BC ==
--- NOTE | 2017-03-06 18:35 | ED ---
General Adult HPI <Baldo Coleman - Last Filed: 03/06/17 20:24> - General Source: patient, RN notes reviewed Mode of arrival: wheelchair Limitations: no limitations <Darrell Lua - Last Filed: 03/06/17 20:27> - General Chief complaint: Shortness of Breath Stated complaint: persistent Chest tightness Time Seen by Provider: 03/06/17 18:11 - History of Present Illness Initial comments: 37-year-old female patient presents to emergency department today for complaints of chest heaviness and shortness of breath. Patient states that yesterday around 2 PM she had sudden onset of chest heaviness that is been constant since then. Patient states that today she has developed a dull ache between her shoulder blades. Patient states that she also has a slight cough, when she takes a deep breath the urge to cough worsens. She has been nauseated but denies any vomiting with this. Patient states that she's been having pain in her left calf for over a week now. She was seen here and had a negative ultrasound of that leg. Patient states the pain now seems to radiating up into her hip as well. Patient had a vaginal delivery 6 weeks ago. She denies any sputum production, sore throat, nasal congestion, fever, or chills. She denies any abdominal pain, dizziness, weakness, constipation, diarrhea, hematuria, dysuria, urinary urgency, urinary frequency. (Darrell Lua) - Related Data Home Medications Medication Instructions Recorded Confirmed Lisinopril-Hctz 10-12.5 mg 1 tab PO DAILY 03/03/17 03/06/17 [Zestoretic 10-12.5] Levothyroxine Sodium [Synthroid] 75 mcg PO DAILY 03/06/17 03/06/17 Pnv with Ca,No.72/Iron/FA 1 tab PO DAILY 03/06/17 03/06/17 [ Plus Tablet] Allergies Allergy/AdvReac Type Severity Reaction Status Date / Time No Known Allergies Allergy Verified 03/06/17 18:56 Review of Systems ROS Other: All systems not noted in ROS Statement are negative. <Baldo Coleman - Last Filed: 03/06/17 20:24> ROS Other: All systems not noted in ROS Statement are negative. <Darrell Lua - Last Filed: 03/06/17 20:27> ROS Statement: Those systems with pertinent positive or pertinent negative responses have been documented in the HPI. Past Medical History Past Medical History: Hypertension, Thyroid Disorder History of Any Multi-Drug Resistant Organisms: None Reported Past Surgical History: No Surgical Hx Reported Additional Past Surgical History / Comment(s): breast reduction 2010, cold knife conization of the cervix 2004 Past Anesthesia/Blood Transfusion Reactions: Postoperative Nausea & Vomiting ( PONV) Past Psychological History: No Psychological Hx Reported Smoking Status: Never smoker Past Alcohol Use History: None Reported Past Drug Use History: None Reported - Past Family History Father Family Medical History: Hypertension Mother Family Medical History: Hypertension <Darrell Lua - Last Filed: 03/06/17 20:27> General Exam Limitations: no limitations General appearance: alert, in no apparent distress Head exam: Present: atraumatic, normocephalic, normal inspection Eye exam: Present: normal appearance, PERRL, EOMI. Absent: scleral icterus, conjunctival injection, periorbital swelling ENT exam: Present: normal exam, mucous membranes moist Neck exam: Present: normal inspection. Absent: tenderness, meningismus, lymphadenopathy Respiratory exam: Present: normal lung sounds bilaterally. Absent: respiratory distress, wheezes, rales, rhonchi, stridor Cardiovascular Exam: Present: regular rate, normal rhythm, normal heart sounds. Absent: systolic murmur, diastolic murmur, rubs, gallop, clicks GI/Abdominal exam: Present: soft, normal bowel sounds. Absent: distended, tenderness, guarding, rebound, rigid Extremities exam: Present: normal inspection, full ROM, normal capillary refill , other (Left calf inspection is normal, no erythema, swelling, or changes in temperature.). Absent: tenderness, pedal edema, joint swelling, calf tenderness Back exam: Present: normal inspection. Absent: tenderness, CVA tenderness (R), CVA tenderness (L) Neurological exam: Present: alert, oriented X3, CN II-XII intact Psychiatric exam: Present: normal affect, normal mood Skin exam: Present: warm, dry, intact, normal color. Absent: rash <Darrell Lua - Last Filed: 03/06/17 20:27> Course <Baldo Coleman - Last Filed: 03/06/17 20:24> <Darrell Lua - Last Filed: 03/06/17 20:27> Vital Signs 03/06/17 03/06/17 03/06/17 17:27 19:20 20:19 Temperature 97.9 F 98.0 F 98.6 F Pulse Rate 95 102 H 95 Respiratory 20 18 18 Rate Blood Pressure 137/73 157/72 162/100 O2 Sat by Pulse 97 95 95 Oximetry - Reevaluation(s) Reevaluation #1: 03/06/17 20:24 Patient reevaluated by myself, Dr. Coleman. Patient resting comfortably in bed. Patient has continued symptoms. Patient updated on results and plan. Case discussed with Dr. aldridge, who will admit for Dr. Dillon. (Baldo Coleman) EKG Findings - EKG Comments: EKG Findings:: EKG obtained at 1730 reveals normal sinus rhythm with possible left atrial enlargement, ventricular rate 91, SC interval 140, QRS duration 98, QT 386, QTC 474. No evidence of ST elevation or depression. <Darrell Lua - Last Filed: 03/06/17 20:27> Medical Decision Making - Lab Data Result diagrams: 03/06/17 18:43 03/06/17 18:43 <Baldo Coleman - Last Filed: 03/06/17 20:24> - Lab Data Result diagrams: 03/06/17 18:43 03/06/17 18:43 <Darrell Lua - Last Filed: 03/06/17 20:27> - Lab Data Lab Results 03/06/17 03/06/17 03/06/17 Range/Units 18:43 18:43 18:43 WBC 7.9 (3.8-10.6) k/uL RBC 4.94 (3.80-5.40) m/uL Hgb 16.3 H (11.4-16.0) gm/dL Hct 45.7 (34.0-46.0) % MCV 92.6 (80.0-100.0) fL MCH 33.0 (25.0-35.0) pg MCHC 35.6 (31.0-37.0) g/dL RDW 13.4 (11.5-15.5) % Plt Count 202 (150-450) k/uL Neutrophils % 69 % Lymphocytes % 22 % Monocytes % 5 % Eosinophils % 2 % Basophils % 0 % Neutrophils # 5.4 (1.3-7.7) k/uL Lymphocytes # 1.8 (1.0-4.8) k/uL Monocytes # 0.4 (0-1.0) k/uL Eosinophils # 0.1 (0-0.7) k/uL Basophils # 0.0 (0-0.2) k/uL PT (9.0-12.0) sec INR (<1.1) APTT (22.0-30.0) sec D-Dimer (<0.60) mg/L FEU Sodium 140 (137-145) mmol/L Potassium 3.7 (3.5-5.1) mmol/L Chloride 100 (98-107) mmol/L Carbon Dioxide 26 (22-30) mmol/L Anion Gap 14 mmol/L BUN 8 (7-17) mg/dL Creatinine 0.84 (0.52-1.04) mg/dL Est GFR (MDRD) Af Amer >60 (>60 ml/min/1.73 sqM) Est GFR (MDRD) Non-Af >60 (>60 ml/min/1.73 sqM) Glucose 93 (74-99) mg/dL Calcium 10.5 H (8.4-10.2) mg/dL Total Bilirubin 0.9 (0.2-1.3) mg/dL AST 48 H (14-36) U/L ALT 95 H (9-52) U/L Alkaline Phosphatase 109 (38-126) U/L Total Creatine Kinase 24 L (30-135) U/L CK-MB (CK-2) <0.2 (0.0-2.4) ng/mL CK-MB (CK-2) Rel Index Troponin I <0.012 (0.000-0.034) ng/mL Total Protein 7.7 (6.3-8.2) g/dL Albumin 4.7 (3.5-5.0) g/dL Urine Color Urine Appearance (Clear) Urine pH (5.0-8.0) Ur Specific [place] (1.001-1.035) Urine Protein (Negative) Urine Glucose (UA) (Negative) Urine Ketones (Negative) Urine Blood (Negative) Urine Nitrite (Negative) Urine Bilirubin (Negative) Urine Urobilinogen (<2.0) mg/dL Ur Leukocyte Esterase (Negative) Urine HCG, Qual (Not Detectd) 03/06/17 03/06/17 03/06/17 Range/Units 18:43 18:43 18:43 WBC (3.8-10.6) k/uL RBC (3.80-5.40) m/uL Hgb (11.4-16.0) gm/dL Hct (34.0-46.0) % MCV (80.0-100.0) fL MCH (25.0-35.0) pg MCHC (31.0-37.0) g/dL RDW (11.5-15.5) % Plt Count (150-450) k/uL Neutrophils % % Lymphocytes % % Monocytes % % Eosinophils % % Basophils % % Neutrophils # (1.3-7.7) k/uL Lymphocytes # (1.0-4.8) k/uL Monocytes # (0-1.0) k/uL Eosinophils # (0-0.7) k/uL Basophils # (0-0.2) k/uL PT 10.2 (9.0-12.0) sec INR 1.0 (<1.1) APTT 24.8 (22.0-30.0) sec D-Dimer 0.33 (<0.60) mg/L FEU Sodium (137-145) mmol/L Potassium (3.5-5.1) mmol/L Chloride (98-107) mmol/L Carbon Dioxide (22-30) mmol/L Anion Gap mmol/L BUN (7-17) mg/dL Creatinine (0.52-1.04) mg/dL Est GFR (MDRD) Af Amer (>60 ml/min/1.73 sqM) Est GFR (MDRD) Non-Af (>60 ml/min/1.73 sqM) Glucose (74-99) mg/dL Calcium (8.4-10.2) mg/dL Total Bilirubin (0.2-1.3) mg/dL AST (14-36) U/L ALT (9-52) U/L Alkaline Phosphatase (38-126) U/L Total Creatine Kinase (30-135) U/L CK-MB (CK-2) (0.0-2.4) ng/mL CK-MB (CK-2) Rel Index Troponin I (0.000-0.034) ng/mL Total Protein (6.3-8.2) g/dL Albumin (3.5-5.0) g/dL Urine Color Colorless Urine Appearance Clear (Clear) Urine pH 5.5 (5.0-8.0) Ur Specific [place] 1.001 (1.001-1.035) Urine Protein Negative (Negative) Urine Glucose (UA) Negative (Negative) Urine Ketones Negative (Negative) Urine Blood Negative (Negative) Urine Nitrite Negative (Negative) Urine Bilirubin Negative (Negative) Urine Urobilinogen <2.0 (<2.0) mg/dL Ur Leukocyte Esterase Negative (Negative) Urine HCG, Qual Not Detected (Not Detectd) Disposition <Baldo Coleman - Last Filed: 03/06/17 20:24> Time of Disposition: 20:27 <Darrell Lua - Last Filed: 03/06/17 20:27> Clinical Impression: Chest pain, Elevated LFTs, Left leg pain Disposition: ADMITTED IP TO THIS HOSP Condition: Good
[2017-03-06 18:57] LABS: Basophils % (A) 0 %; CH 32.4; CHCM 35.1; Eosinophils # (A) 0.1 k/uL (0-0.7); Eosinophils % (A) 2 %; HCT 45.7 % (34.0-46.0); HDW 3.06; HGB 16.3 gm/dL (11.4-16.0); Luc # (Auto) 0.16; Luc % (Auto) 2; Lymphocytes # (A) 1.8 k/uL (1.0-4.8); Lymphocytes % (A) 22 %; MCHC 35.6 g/dL (31.0-37.0); MCV 92.6 fL (80.0-100.0); Mean Platelet Volume 8.6; Monocytes # (A) 0.4 k/uL (0-1.0); Monocytes % (A) 5 %; Neutrophils # (A) 5.4 k/uL (1.3-7.7); Neutrophils % (A) 69 %; RBC 4.94 m/uL (3.80-5.40); RDW 13.4 % (11.5-15.5); WBC 7.9 k/uL (3.8-10.6); WBC (Perox) 7.88
[2017-03-06 18:59] LABS: Appearance,Urine Clear (Clear); Bilirubin,Urine Negative (Negative); Glucose,Urine (UA) Negative (Negative); Ketones,Urine Negative (Negative); Leukocyte Esterase,Urine Negative (Negative); Nitrite,Urine Negative (Negative); PH, Urine 5.5 (5.0-8.0); Protein,Urine Negative (Negative); Specific Gravity,Urine 1.001 (1.001-1.035); UA Billing (MACRO vs. MICRO) CHEM; Urobilinogen,Urine <2.0 mg/dL (<2.0)
[2017-03-06 19:05] LABS: ALT 95 U/L (9-52); AST 48 U/L (14-36); Alkaline Phosphatase 109 U/L (38-126); Anion Gap 14 mmol/L; Blood Urea Nitrogen 8 mg/dL (7-17); Calcium 10.5 mg/dL (8.4-10.2); Carbon Dioxide 26 mmol/L (22-30); Chloride 100 mmol/L (98-107); Glucose 93 mg/dL (74-99); Non-African American GFR(MDRD) >60 (>60 ml/min/1.73 sqM); Potassium 3.7 mmol/L (3.5-5.1); Sodium 140 mmol/L (137-145); Total Bilirubin 0.9 mg/dL (0.2-1.3); Total Protein 7.7 g/dL (6.3-8.2)
[2017-03-06 19:12] LABS: Creatine Kinase 24 U/L (30-135)
--- NOTE | 2017-03-06 19:12 | XR ---
EXAMINATION TYPE: XR chest 2V DATE OF EXAM: 03/06/2017 7:07 PM COMPARISON: NONE HISTORY: Chest pain TECHNIQUE: Frontal and lateral views of the chest are obtained. FINDINGS: There is no focal air space opacity. No evidence for pnuemothorax.No pleural effusion. The cardiac silhouette size is within normal limits. The osseous structures are grossly intact. IMPRESSION: 1. No acute cardiopulmonary process.
[2017-03-06 19:24] LABS: Creatine Kinase MB <0.2 ng/mL (0.0-2.4); Troponin I <0.012 ng/mL (0.000-0.034)
[2017-03-06 19:39] LABS: Partial Thromboplastin Time 24.8 sec (22.0-30.0); Prothrombin Time 10.2 sec (9.0-12.0)
[2017-03-06] MEDS ORDERED: HEPARIN SODIUM,PORCINE 5,000 UNIT/ML 1 ML VIAL IV ONE (20:24)
[2017-03-06] MEDS ORDERED: RX INFO: IV CONTRAST WAS GIVEN 1 EACH MISC MISCELLANE PRN (20:24)
[2017-03-06] MEDS ORDERED: NITROGLYCERIN SL TABS 0.4 MG TAB SUBLINGUAL PRN (20:24)
[2017-03-06] MEDS ORDERED: ASPIRIN 81 MG CHEW PO STA (20:24)
[2017-03-06] MEDS ORDERED: HEPARIN SODIUM,PORCINE/D5W PMX 25,000 UNIT in DEXTROSE/WATER 1 500ML.BAG IV SCH (20:30)
--- NOTE | 2017-03-06 21:06 | CT ---
EXAMINATION TYPE: CT angio chest DATE OF EXAM: 03/06/2017 8:55 PM COMPARISON: NONE HISTORY: chest pressure, sob CT DLP: 461.0 mGycm CONTRAST: CT chest with contrast and 3D reconstruction with MIP imaging is performed with IV Contrast, patient injected with 67 mL of Omnipaque 350. Contrast-enhanced CT of the chest was performed through the course of the pulmonary arteries with kwaku g and mediastinal window settings submitted. 3D reconstruction with MIP imaging was also performed. PULMONARY ARTERIES: The pulmonary arteries and their major tributaries are patent. I do not see letty dence for sizable filling defect to suggest pulmonary embolic process. LUNGS: The lungs are clear and free of infiltrate. No evidence for atelectasis. No pulmonary nodule or mass is detected. No pleural effusion. MEDIASTINUM: Thoracic aorta is of normal caliber . The heart is not enlarged. No evidence for media stinal mass. No mediastinal lymph nodes greater than 1cm. HILAR STRUCTURES: No evidence for mass. No hilar lymph nodes greater than 1 cm. UPPER ABDOMEN: Cardiac lobe cyst measuring 2.7 cm. IMPRESSION: 1. No evidence for Pulmonary embolism at this time.
[2017-03-06] MEDS: NITROGLYCERIN SL TABS 0.4 MG TAB SUBLINGUAL STA ×2 (21:16→21:35)
[2017-03-07 02:52] LABS: Creatine Kinase <20 U/L (30-135)
[2017-03-07 02:53] LABS: Cholesterol 191 mg/dL (<200); HDL Cholesterol 47 mg/dL (40-60); Triglycerides 246 mg/dL (<150)
[2017-03-07 03:05] LABS: Creatine Kinase MB <0.2 ng/mL (0.0-2.4); Troponin I <0.012 ng/mL (0.000-0.034)
[2017-03-07] MEDS ORDERED: HEPARIN SODIUM 1,000 UNIT/ML VIAL IV ONE (06:25)
[2017-03-07 07:21] LABS: Creatine Kinase <20 U/L (30-135)
[2017-03-07 07:33] LABS: Creatine Kinase MB 0.2 ng/mL (0.0-2.4); Troponin I <0.012 ng/mL (0.000-0.034)
[2017-03-07] MEDS ORDERED: ASPIRIN 325 MG TAB PO SCH (09:00)
--- NOTE | 2017-03-07 09:15 | P.CRDCN ---
History of Present Illness Consult date: 03/07/17 Requesting physician: Kevin Guardado Consult reason: chest pain, shortness of breath Chief complaint: Chest pain and shortness of breath History of present illness: This is a pleasant 37-year-old female with history of hypothyroidism, hypertension, who just delivered a baby girl 6 weeks ago, she also has a 6-year- old son at home. Patient presents to the hospital with symptoms of mid epigastric chest discomfort, she also states that over the past couple of weeks she's been progressively more short of breath, complaining of dry hacking cough. Patient also noticed some peripheral edema recently and has been having pain in both of her legs. Dr. Apodaca did consult Dr. Rogers to see the patient in the office, he also recommended starting the patient on lisinopril hydrochlorothiazide which did seem to help with the swelling somewhat, difficulty breathing and hacking cough continued as to the bilateral leg pain. Venous duplex study was performed on the ninth of this month which was negative for DVT. Cardiac risk factors are negative for diabetes, no hyperlipidemia, nonsmoker, no family history of premature coronary artery disease. Blood pressure on arrival here 137/73, pressure did go up to 169/102, heart rate in the 90s to low 100s, 99% on room air. WBC 7.9, hemoglobin 16.3, platelets 202. D-dimer is negative potassium 3.7, BUN 8, creatinine 0.8. AST 48, ALT 95, troponins negative 3. Cholesterol 191, LDL 95, triglycerides 246, HDL 47. EKG shows normal sinus rhythm with no acute changes. CTA of the chest was performed which was negative for pulmonary embolism. Chest x-ray did not reveal any acute cardiopulmonary process. Blood pressure this morning 124/58. Patient continues to have mild difficulty in breathing, positive tachycardia cough nonproductive. Denies any chest discomfort this morning. Past Medical History Past Medical History: Hypertension, Thyroid Disorder History of Any Multi-Drug Resistant Organisms: None Reported Past Surgical History: No Surgical Hx Reported Additional Past Surgical History / Comment(s): breast reduction 2010, cold knife conization of the cervix 2004 Past Anesthesia/Blood Transfusion Reactions: Postoperative Nausea & Vomiting ( PONV) Past Psychological History: No Psychological Hx Reported Smoking Status: Never smoker Past Alcohol Use History: None Reported Past Drug Use History: None Reported - Past Family History Father Family Medical History: Hypertension Mother Family Medical History: Hypertension Medications and Allergies Home Medications Medication Instructions Recorded Confirmed Type Lisinopril-Hctz 10-12.5 mg 1 tab PO DAILY 03/03/17 03/06/17 History [Zestoretic 10-12.5] Levothyroxine Sodium [Synthroid] 75 mcg PO DAILY 03/06/17 03/06/17 History Pnv with Ca,No.72/Iron/FA 1 tab PO DAILY 03/06/17 03/06/17 History [ Plus Tablet] Allergies Allergy/AdvReac Type Severity Reaction Status Date / Time No Known Allergies Allergy Verified 03/06/17 18:56 Physical Exam Vitals: Vital Signs Temp Pulse Resp BP Pulse Ox 03/07/17 06:28 78 16 124/58 98 03/07/17 01:45 97.3 F L 97 18 126/69 95 03/06/17 23:13 94 18 161/88 96 03/06/17 21:35 90 18 153/99 99 03/06/17 21:02 102 H 18 169/102 99 Intake and Output 03/06/17 03/07/17 03/07/17 22:59 06:59 14:59 Intake Total 183.333 Balance 183.333 Intake: Intake, IV Titration 183.333 Amount Heparin Sodium,Porcine/ 183.333 D5w Pmx 25,000 unit In Dextrose/Water 1 500ml. bag @ 10.022 UNITS/KG/HR 20 mls/hr IV .Q24H [facility] Rx #:[id number] PHYSICAL EXAMINATION: HEENT: Head is atraumatic, normocephalic. Pupils equal, round. Neck is supple. There is no elevated jugular venous pressure. HEART EXAMINATION: Heart S1, S2 normal. No murmur or gallop heard. CHEST EXAMINATION: Lungs are clear to auscultation and precussion. No chest wall tenderness is noted on palpation or with deep breathing. ABDOMEN: Soft, nontender. Bowel sounds are heard. No organomegaly noted. EXTREMITIES: 2+ peripheral pulses with no evidence of peripheral edema and no calf tenderness noted. NEUROLOGIC patient is awake, alert and oriented -3. . Results 03/06/17 18:43 03/06/17 18:43 Cardiac Enzymes 03/07/17 03/07/17 Range/Units 02:14 06:39 CK-MB (CK-2) <0.2 0.2 (0.0-2.4) ng/mL Troponin I <0.012 <0.012 (0.000-0.034) ng/mL Coagulation 03/07/17 Range/Units 02:14 APTT 33.0 H (22.0-30.0) sec Lipids 03/07/17 Range/Units 02:14 Triglycerides 246 H (<150) mg/dL Cholesterol 191 (<200) mg/dL HDL Cholesterol 47 (40-60) mg/dL Current Medications Generic Name Dose Route Start Last Admin Trade Name Freq PRN Reason Stop Dose Admin Aspirin 325 mg 03/07/17 09:00 03/07/17 09:07 Aspirin PO 325 mg DAILY MYLENE Administration Lisinopril/HCTZ 1 each 03/07/17 09:15 Zestoretic 10-12.5 PO DAILY MYLENE Heparin Sodium/Dextrose 25,000 500 mls @ 20 mls/hr 03/06/17 20:30 03/07/17 06 :22 unit/ IV Solution IV 13.02 units/kg/hr .Q24H MYLENE 25.98 mls/hr Protocol Titration 10.022 UNITS/KG/HR Levothyroxine Sodium 75 mcg 03/07/17 09:15 Synthroid PO DAILY MYLENE Miscellaneous Information 1 each 03/06/17 20:24 03/06/17 21:04 Rx Info: Iv Contrast Was Given MISCELLANE 03/08/17 20:24 1 each DAILY PRN Administration Per Protocol Nitroglycerin 0.4 mg 03/06/17 20:24 Nitrostat SUBLINGUAL Q5M PRN Chest Pain Non-Formulary Medication 1 tab 03/07/17 09:15 Pnv With Ca,No.72/Iron/Fa [ Plus Tablet] PO DAILY MYLENE Intake and Output 03/06/17 03/07/17 03/07/17 22:59 06:59 14:59 Intake Total 183.333 Balance 183.333 Intake: Intake, IV Titration 183.333 Amount Heparin Sodium,Porcine/ 183.333 D5w Pmx 25,000 unit In Dextrose/Water 1 500ml. bag @ 10.022 UNITS/KG/HR 20 mls/hr IV .Q24H [facility] Rx #:[id number] EKG Interpretations (text) EKG shows normal sinus rhythm with no acute changes. Assessment and Plan Plan: Assessment and plan #1 symptoms of shortness of breath with associated Hacky, nonproductive cough. Chest x-ray does not reveal any acute changes. CTA negative for PE #2 atypical chest discomfort, troponins negative 3, EKG shows normal sinus rhythm with no acute changes. #3 hypertension, recently started on lisinopril hydrochlorothiazide. #4 hypothyroidism #5 mildly abnormal liver enzymes #6 bilateral leg pain, venous duplex performed as an outpatient was negative for DVT. Plan We will obtain a stat BNP level. We will also request an echocardiogram with Doppler study be performed. Resume lisinopril hydrochlorothiazide. Further recommendations will be based on these findings and the patient's clinical course. DNP note has been reviewed, I agree with a documented findings and plan of care. Patient was seen and examined.
[2017-03-07] MEDS ORDERED: LEVOTHYROXINE 75 MCG TAB PO SCH (09:45)
[2017-03-07] MEDS ORDERED: LISINOPRIL-HCTZ 10-12.5 MG 1 EACH TAB PO SCH ×2 (09:45→17:00)
[2017-03-07] MEDS ORDERED: PRENATAL VIT-IRON-FOLIC ACID 1 EACH CAP PO SCH (10:00)
--- NOTE | 2017-03-07 11:02 | ECHOF ---
Referral Reason:assess lvf MEASUREMENTS -------- HEIGHT: 160.0 cm WEIGHT: 99.8 kg BP: 133/74 RVIDd: 2.2 cm (< 3.3) IVSd: 1.1 cm (0.6 - 1.1) LVIDd: 4.4 cm (3.9 - 5.3) LVPWd: 1.2 cm (0.6 - 1.1) IVSs: 1.3 cm LVIDs: 3.6 cm LVPWs: 1.3 cm LA Diam: 2.9 cm (2.7 - 3.8) LAESV Index (A-L): 14.81 ml/m Ao Diam: 2.7 cm (2.0 - 3.7) AV Cusp: 1.7 cm (1.5 - 2.6) LA Diam: 3.2 cm (2.7 - 3.8) MV EXCURSION: 18.330 mm (> 18.000) MV EF SLOPE: 55 mm/s (70 - 150) EPSS: 0.8 cm MV E Gume: 0.69 m/s MV DecT: 241 ms MV A Gume: 0.75 m/s MV E/A Ratio: 0.92 RAP: 5.00 mmHg RVSP: 20.45 mmHg FINDINGS -------- Sinus rhythm. This was a technically adequate study. There is mild concentric left ventricular hypertrophy. Overall left ventricular systolic function is mildly impaired with, an EF between 45 - 50 %. The right ventricle is normal in size. Normal LA size by volume 22+/-6 ml/m2. The right atrial size is normal. The aortic valve is trileaflet, and appears structurally normal. No aortic stenosis or regurgitation. Mild mitral regurgitation is present. Mild tricuspid regurgitation present. There is no evidence of pulmonary hypertension. The right ventricular systolic pressure, as measured by Doppler, is 20.45mmHg. There is no pulmonic regurgitation present. The aortic root size is normal. There is no pericardial effusion. CONCLUSIONS -------- 1. There is mild concentric left ventricular hypertrophy. 2. Overall left ventricular systolic function is mildly impaired with, an EF between 45 - 50 %. 3. Normal LA size by volume 22+/-6 ml/m2. 4. Mild mitral regurgitation is present. 5. Mild tricuspid regurgitation present. 6. There is no evidence of pulmonary hypertension. 7. The right ventricular systolic pressure, as measured by Doppler, is 20.45mmHg. [employer] WORKER: May Sparrow RDCS
[2017-03-07 12:37] VITALS: RESP 18
[2017-03-07 17:25] VITALS: BP 152/91; PULSE 78; TEMP 97.6
--- NOTE | 2017-03-07 18:35 | HP ---
DATE OF ADMISSION: This dictation is both H&P and discharge summary. Patient is a very pleasant 37-year-old female delivered a baby 6 weeks ago, came in with highly elevated blood pressure with midepigastric chest discomfort and nausea. Pain is mostly pressure-like sensation, not associated with shortness of breath. Was also complaining of some hacking cough. Does not have any pneumonia or pulmonary embolism. Patient does not have any significant EKG changes. Patient was started on lisinopril hydrochlorothiazide recently by Dr. Rogers as an outpatient. Patient was also having pedal edema. Doppler of the lower extremity was negative and patient did not have any pulmonary edema at that time. Patient does not have any pulmonary edema at this time either. Patient denied any fever, chills. Patient has very minimally elevated liver enzymes and not high enough to say preeclampsia. Patient does not have any proteinuria in the urine. Patient denied any fever, chills. Patient denied any dysuria, nausea, vomiting. Patient had an echocardiogram here, which unfortunately showed minimally depressed ejection fraction, which is around 45 to 50%. The concern was cardiomyopathy and patient will need a repeat echocardiogram in about 3 months to make sure it is getting better. Most of the time cardiomyopathy will improve. REVIEW OF SYSTEMS: CONSTITUTIONAL: No fever, no malaise, no fatigue. HEENT: No recent visual problems or hearing problems. Denied any sore throat. CARDIOVASCULAR: As in HPI. Patient denied any orthopnea, PND. PULMONARY: No shortness of breath, no cough, no hemoptysis. GASTROINTESTINAL: No diarrhea, no nausea, no vomiting, no abdominal pain. Normoactive bowel sounds. NEUROLOGICAL: No headaches, no weakness, no numbness. HEMATOLOGICAL: Denies any bleeding or petechiae. GENITOURINARY: Denies any burning micturition, frequency, or urgency. MUSCULOSKELETAL/RHEUMATOLOGICAL: Denies any joint pain, swelling, or any muscle pain. ENDOCRINE: Denies any polyuria or polydipsia. The rest of the 14 point review of systems is negative. PAST MEDICAL HISTORY: Hypertension, hypothyroidism, breast reduction surgery in the past. Postoperative nausea, vomiting. SOCIAL HISTORY: Denied smoking, alcohol abuse or any drug abuse. FAMILY HISTORY: Father and mother had hypertension. HOME MEDICATIONS: Lisinopril, hydrochlorothiazide, levothyroxine. ALLERGIES: No known drug allergies. PHYSICAL EXAMINATION: Temperature 97.3, pulse 98, respiratory rate of 16, blood pressure is 124/58. Patient's blood pressure went up in the hospital here, went up as high as 170/102. Saturating at 99% on room air. GENERAL: The patient is alert and oriented x3, not in any acute distress. Well developed, well nourished. HEENT: Pupils are round and equally reacting to light. EOMI. No scleral icterus. No conjunctival pallor. Normocephalic, atraumatic. No pharyngeal erythema. No thyromegaly. CARDIOVASCULAR: S1 and S2 present. No murmurs, rubs, or gallops. PULMONARY: Chest is clear to auscultation, no wheezing or crackles. ABDOMEN: Soft, nontender, nondistended, normoactive bowel sounds. No palpable organomegaly. MUSCULOSKELETAL: No joint swelling or deformity. EXTREMITIES: No cyanosis, clubbing, or pedal edema. NEUROLOGICAL: Gross neurological examination did not reveal any focal deficits. SKIN: No rashes. LABORATORY DATA: CBC, CMP are abnormal for as mentioned above minimally elevated AST and ALT 48 and 95, not very high. LDL of 95. UA is negative. ASSESSMENT AND PLAN: 1. Chest pain, ruled out acute coronary artery syndrome. Patient had echocardiogram, which did not show any wall motion abnormalities. 2. Mildly depressed ejection fraction of around 45 to 50%. cardiomyopathy is a consideration, although patient is not requiring any Lasix at this point of time. Because of this ejection fraction of 45%, patient was asked to take lisinopril, hydrochlorothiazide, dose of which was increased by Cardiology and patient was also started on Coreg by Cardiology. Patient will need a repeat echocardiogram. I asked her to check the blood pressure closely at home. My concern is hypotension. 3. Hypertension. Management as mentioned above. Because of increasing the dose of lisinopril, hydrochlorothiazide and Coreg, my concern is that hypotension and patient was asked to check the blood pressure twice a day and appropriate way of measuring blood pressure was counseled to the patient. 4. Hypothyroidism. 5. Mildly elevated liver enzymes. 6. My suspicion is low for any preeclampsia. The patient most probably has -induced hypertension, which is expected to get better by 12 weeks and hopefully her ejection fraction will also improve. Patient will need repeat echocardiogram. This dictation is both H&P and discharge summary. The patient will be discharged today to follow with Dr. Rogers and Dr. Ayanna Pfeiffer in about 3 to 7 days. Activity as tolerated. Cardiac diet, low-salt diet. Patient will need repeat comprehensive metabolic profile as an outpatient when she sees Dr. Pfeiffer.
--- NOTE | 2017-03-08 04:19 | CONS ---
DATE OF CONSULTATION: This is a lady who had hypertension and was scheduled to see Dr. Rogers in the office. Apparently she came into the hospital with some peripheral edema, probably as a result of Amlodipine. However, her blood pressure control is fair. Because of her presentation with chest discomfort, she went on to have a CT angiography of the chest performed. D-dimer was actually not elevated, but because of her chest pressure, she went on to have a CT angiography which did not reveal any significant evidence of pulmonary embolism. Combination of shortness of breath and chest tightness was the reason she had this study performed. However, echocardiogram revealed ejection fraction in the range of 50% with a low end of normal. The left ventricular size is normal. Right-sided chambers are also within normal limits. I evaluated the patient. Please also refer to the note by Odilia Jade, nurse practitioner. I have advised that patient should be discharged on Lisinopril hydrochlorothiazide 20/12.5 and also Coreg 3.125 mg b.i.d. and have and she will be seeing Dr. Rogers in the next 3 to 4 days. I explained to her the findings on the echo that the ejection fraction was at low end of normal and we will optimize blood pressure control and hopefully this combination, should be better than the Amlodipine she tried earlier. She can be discharged today, but I encouraged her to call me if she has any question, concern or problem in the interim. Thank you very much for the consult.
== END 2017-03-07 16:35 | disposition home or self-care (01) ==
LOC: EC 17:25 → 3OBS 20:25 → 2CATHESU 03-07 07:52
PROVIDERS: ADMIT Hospitalist; ATTEND Hospitalist
DX: R07.89 Other chest pain (principal); R06.02 Shortness of breath; R79.89 Other specified abnormal findings of blood chemistry; R00.0 Tachycardia, unspecified; R05 Cough; I10 Essential (primary) hypertension; E03.9 Hypothyroidism, unspecified; M79.605 Pain in left leg; M79.604 Pain in right leg; R74.8 Abnormal levels of other serum enzymes; Z79.899 Other long term (current) drug therapy; R11.0 Nausea; R60.0 Localized edema
CPT/HCPCS: 96365; 96366 ×12; 96376 ×2; 99285; 36415; 93005; 93306; 85379; 83880; 80061; 80053; 82550 ×2; 82553 ×2; 84484 ×2; 85025; 85610; 85730 ×2; 81003; 81025; 71020; 71275; G0378 ×2; J1644 ×3; Q9967; S0197

== ENCOUNTER → 2017-09-06 | Outpatient (CLI) | payer BC ==
--- NOTE | 2017-09-06 15:53 | MR ---
EXAMINATION TYPE: MR iac wo/w con DATE OF EXAM: 09/06/2017 COMPARISON: NONE HISTORY: Right-sided tinnitus TECHNIQUE: Multiplanar, multisequence images of the brain and brainstem is performed without and with IV contras t, utilizing 10 mL intravenous Gadavist . IAC protocol was utilized. FINDINGS: Diffusion weighted images demonstrate no evidence of a recent infarct or other diffusion ab normality. There is no extra-axial fluid collection or significant white matter signal abnormality. The ventricular system and cisternal spaces are normal in size and appearance. The brain volume is age appropriate. Midline structures demonstrate normal morphology. The craniocervical junction appears within normal limits. Post contrast images demonstrate no abnormal enhancement. The dural venous sinuses appear pa tent. The visualized sinuses are clear and the globes are intact. Incidental note is made of low-lyin g cerebellar tonsils without herniation or ectopia. There is no abnormal enhancement of 7th or 8th cranial nerves. No cerebellar pontine angle mass. No e vidence of acoustic schwannoma. No mastoid fluid is appreciated. IMPRESSION: No abnormal enhancement of the 7th or 8th cranial nerves, cerebellopontine angle mass, or evidence of acoustic frontal and this patient with right-sided tinnitus. Unremarkable brain MRI.
== END ==
LOC: RADMRIMAIN 11:35
PROVIDERS: ATTEND Otolaryngology
DX: H93.11 Tinnitus, right ear (principal)
CPT/HCPCS: 70553; A9581

== ENCOUNTER → 2018-03-19 | Outpatient (CLI) | payer BC ==
--- NOTE | 2018-03-19 12:19 | MM ---
Reason for exam: screening (asymptomatic). Baseline mammogram. History: Reductions of both breasts, 2011. Took hormonal contraceptives for 8 years beginning at age 19. Physical Findings: Nurse did not find any significant physical abnormalities on exam. MG 3D Screening Mammo W/Cad Bilateral CC and MLO view(s) were taken. Benign calcifications bilaterally. No significant new findings when compared with previous films. These results were verbally communicated with the patient and result sheet given to the patient on 03/19/18. ASSESSMENT: Benign, BI-RAD 2 RECOMMENDATION: Routine screening mammogram of both breasts at age 42.
== END | disposition home or self-care (01) ==
LOC: RADMAMWWP 10:23
PROVIDERS: ATTEND Obstetrics & Gynecology
DX: Z12.31 Encounter for screening mammogram for malignant neoplasm of breast (principal)
CPT/HCPCS: 77063; 77067

== ENCOUNTER → 2018-03-31 | Outpatient (CLI) | payer BC ==
[2018-03-31 11:31] LABS: T4, Free (Free Thyroxine) 0.87 ng/dL (0.78-2.19)
== END | disposition home or self-care (01) ==
LOC: LABWHC1 09:06
PROVIDERS: ATTEND Internal Medicine Endocrinology, Diabetes & Metabolism
DX: E03.8 Other specified hypothyroidism (principal); N92.6 Irregular menstruation, unspecified
CPT/HCPCS: 36415; 82533; 83001; 83002; 84146; 84439; 84443; 84480

== ENCOUNTER → 2018-04-04 | Outpatient (CLI) | payer BC ==
--- NOTE | 2018-04-04 15:35 | US ---
EXAMINATION TYPE: US thyroid st tissue head/neck DATE OF EXAM: 04/04/2018 COMPARISON: US CLINICAL HISTORY: E03.8 Other specified hypothyroidism. GLAND SIZE: Right Lobe: 5.9 x 3.1 x 2.2 cm Overall Parenchyma: heterogenous Left Lobe: 6.6 x 3.0 x 2.4 cm Overall Parenchyma: heterogeneous Isthmus Thickness: 0.8 cm NODULES RIGHT: # of nodules measured on right: 0 LEFT: # of nodules measured on left: 0 ISTHMUS: # of nodules measured in the isthmus: 0 Bilateral neck scanned. Gland is diffusely enlarged and heterogeneous. Node noted left lateral neck measures 1.6 x 0.7 cm IMPRESSION: Thyroid gland enlargement with diffuse heterogeneity. No evidence for discrete nodule at this time.
== END | disposition home or self-care (01) ==
LOC: RADUSWWP 14:22
PROVIDERS: ATTEND Internal Medicine Endocrinology, Diabetes & Metabolism
DX: E04.9 Nontoxic goiter, unspecified (principal); E03.8 Other specified hypothyroidism
CPT/HCPCS: 76536

== ENCOUNTER → 2018-06-20 | Outpatient (CLI) | payer BC | END | disposition home or self-care (01) | LOC: LABWHC1 11:23 | PROVIDERS: ATTEND Internal Medicine Endocrinology, Diabetes & Metabolism | DX: E03.8 Other specified hypothyroidism (principal) | CPT/HCPCS: 36415; 84443 ==

== ENCOUNTER → 2019-01-13 | Outpatient (CLI) | payer BC | END | disposition home or self-care (01) | LOC: LABWHC1 08:02 | PROVIDERS: ATTEND Internal Medicine Endocrinology, Diabetes & Metabolism | DX: E03.8 Other specified hypothyroidism (principal) | CPT/HCPCS: 36415; 84443 ==

== ENCOUNTER 2019-03-31 02:35 | Emergency (ER) | payer BC ==
[2019-03-31] MEDS ORDERED: SODIUM CHLORIDE 0.9% 500 ML 500 ML IV STA (03:11)
--- NOTE | 2019-03-31 03:36 | ED ---
Chest Pain HPI - General Source: patient Mode of arrival: ambulatory Limitations: no limitations <Neela Nice - Last Filed: 03/31/19 03:32> <Artemio Brumfield - Last Filed: 03/31/19 05:04> - General Chief Complaint: Chest Pain Stated Complaint: Chest Pain Time Seen by Provider: 03/31/19 03:05 - History of Present Illness Initial Comments: 39-year-old female patient presents to the emergency department today for evaluation of left-sided chest pain. Patient states this started on Saturday after a short episode of fluttering in her chest. Patient states that the chest pain lasted for 2 days. States that she was then pain-free and symptom-free on Saturday however had return of symptoms Saturday morning. Patient states that she had constant left-sided chest pain throughout the day. Patient states it began radiating into the left shoulder and left side of her neck. Patient denies any shortness of breath with this. Denies any nausea or vomiting. Patient states she did have some intermittent dizziness with this and has had a couple more episodes of the palpitations. She denies any smoking history. States she does have elevated blood pressure. States that she does have history of cardiomyopathy induced by . Patient denies any recent rash, fever, chills, abdominal pain, diarrhea, constipation, back pain, numbness, tingling, weakness, hematuria, dysuria, urinary urgency, urinary frequency, headache, visual changes, or any other complaints. (Neela Nice) - Related Data Home Medications Medication Instructions Recorded Confirmed Lisinopril-Hctz 10-12.5 mg 1 tab PO DAILY 03/03/17 03/06/17 [Zestoretic 10-12.5] Levothyroxine Sodium [Synthroid] 75 mcg PO DAILY 03/06/17 03/06/17 Pnv,Calcium 72/Iron/Folic Acid 1 tab PO DAILY 03/06/17 03/06/17 [ Plus Tablet] Previous Rx's Medication Instructions Recorded Ranitidine HCl [Zantac] 150 mg PO BID #30 tab 03/07/17 Allergies Allergy/AdvReac Type Severity Reaction Status Date / Time No Known Allergies Allergy Verified 03/31/19 02:41 Review of Systems ROS Other: All systems not noted in ROS Statement are negative. <Neela Nice - Last Filed: 03/31/19 03:32> ROS Other: All systems not noted in ROS Statement are negative. <Artemio Brumfield - Last Filed: 03/31/19 05:04> ROS Statement: Those systems with pertinent positive or pertinent negative responses have been documented in the HPI. EKG Findings - EKG Comments: EKG Findings:: EKG obtained at 0249 shows normal sinus rhythm with a prolonged QT interval. Ventricular rate is 99, NC interval of 138, QR anglican 90, QT 370, QTC 474. No evidence of ST elevation or depression <Neela Nice - Last Filed: 03/31/19 03:32> Past Medical History Past Medical History: Hypertension, Thyroid Disorder Additional Past Medical History / Comment(s): cardiomyopathy, History of Any Multi-Drug Resistant Organisms: None Reported Past Surgical History: No Surgical Hx Reported Additional Past Surgical History / Comment(s): breast reduction 2010, cold knife conization of the cervix 2004, Past Anesthesia/Blood Transfusion Reactions: Postoperative Nausea & Vomiting (PONV) Additional Past Anesthesia/Blood Transfusion Reaction / Comment(s): Severe PONV Past Psychological History: No Psychological Hx Reported Smoking Status: Never smoker Past Alcohol Use History: Occasional Past Drug Use History: None Reported - Past Family History Father Family Medical History: Hypertension Mother Family Medical History: Hypertension <Neela Nice - Last Filed: 03/31/19 03:32> General Exam Limitations: no limitations General appearance: alert, in no apparent distress, other (This is a well- developed, well-nourished adult female patient in no acute distress. Vital signs upon presentation are temperature 97.9F, pulse 106, respirations 18, blood pressure 142/81, pulse ox 100% on room air.) Eye exam: Present: normal appearance, PERRL, EOMI. Absent: scleral icterus, conjunctival injection, periorbital swelling ENT exam: Present: normal exam, normal oropharynx, mucous membranes moist Respiratory exam: Present: normal lung sounds bilaterally. Absent: respiratory distress, wheezes, rales, rhonchi, stridor Cardiovascular Exam: Present: regular rate, normal rhythm, normal heart sounds. Absent: systolic murmur, diastolic murmur, rubs, gallop, clicks GI/Abdominal exam: Present: soft, normal bowel sounds. Absent: distended, tenderness, guarding, rebound, rigid Neurological exam: Present: alert, oriented X3, CN II-XII intact Psychiatric exam: Present: normal affect, normal mood Skin exam: Present: warm, dry, intact, normal color. Absent: rash <Neela Nice - Last Filed: 03/31/19 03:32> Course Vital Signs 03/31/19 02:39 Temperature 97.9 F Pulse Rate 106 H Respiratory 18 Rate Blood Pressure 142/81 O2 Sat by Pulse 100 Oximetry Disposition <Neela Nice - Last Filed: 03/31/19 03:32> Is patient prescribed a controlled substance at d/c from ED?: No <Artemio Brumfield - Last Filed: 03/31/19 05:04> Clinical Impression: Chest pain Disposition: HOME SELF-CARE Condition: Good Instructions (If sedation given, give patient instructions): Chest Pain (ED) Referrals: Leon Pfeiffer III, MD [Primary Care Provider] - 1-2 days
[2019-03-31 03:39] LABS: Anisocytosis Slight; Basophils % (A) 1 %; Eosinophils # (A) 0.1 k/uL (0-0.7); Eosinophils % (A) 2 %; HCT 34.8 % (34.0-46.0); HGB 11.2 gm/dL (11.4-16.0); Hypochromasia Moderate; Lymphocytes # (A) 1.9 k/uL (1.0-4.8); Lymphocytes % (A) 30 %; MCH 24.5 pg (25.0-35.0); MCHC 32.1 g/dL (31.0-37.0); MCV 76.3 fL (80.0-100.0); Mean Platelet Volume 8.6; Microcytosis Slight; Monocytes # (A) 0.3 k/uL (0-1.0); Monocytes % (A) 4 %; Neutrophils # (A) 3.8 k/uL (1.3-7.7); Neutrophils % (A) 60 %; Platelet Count 249 k/uL (150-450); RBC 4.56 m/uL (3.80-5.40); RDW 17.3 % (11.5-15.5); WBC 6.4 k/uL (3.8-10.6)
--- NOTE | 2019-03-31 03:48 | XR ---
EXAM: XR Chest, 2 Views CLINICAL HISTORY: ITS.REASON XR Reason: Chest Pain TECHNIQUE: Frontal and lateral views of the chest. COMPARISON: 03/06/17 CT chest FINDINGS: Lungs: No consolidation or mass. Pleural space: No effusion. Heart: No cardiomegaly. Mediastinum: Unremarkable. Bones/joints: No acute findings. IMPRESSION: No acute cardiopulmonary process.
[2019-03-31 03:50] LABS: ALT 41 U/L (9-52); AST 25 U/L (14-36); Albumin 4.1 g/dL (3.5-5.0); Alkaline Phosphatase 84 U/L (38-126); Anion Gap 11 mmol/L; Blood Urea Nitrogen 14 mg/dL (7-17); Calcium 9.5 mg/dL (8.4-10.2); Carbon Dioxide 22 mmol/L (22-30); Chloride 106 mmol/L (98-107); Glucose 114 mg/dL (74-99); Magnesium 2.1 mg/dL (1.6-2.3); Potassium 3.5 mmol/L (3.5-5.1); Sodium 139 mmol/L (137-145); Total Bilirubin 0.5 mg/dL (0.2-1.3); Total Protein 6.6 g/dL (6.3-8.2)
[2019-03-31 03:52] LABS: INR 0.9 (<1.2); Partial Thromboplastin Time 23.5 sec (22.0-30.0)
[2019-03-31 05:27] VITALS: BP 123/65; RESP 19; TEMP 98.5
[2019-03-31 05:30] VITALS: PULSE 87
[2019-03-31 06:58] LABS: T4, Free (Free Thyroxine) 1.15 ng/dL (0.78-2.19)
== END 2019-03-31 05:27 | disposition home or self-care (01) ==
LOC: EC 02:35
DX: R07.9 Chest pain, unspecified (principal); R42 Dizziness and giddiness; R00.2 Palpitations; I11.9 Hypertensive heart disease without heart failure; I43 Cardiomyopathy in diseases classified elsewhere; E07.9 Disorder of thyroid, unspecified; Z79.890 Hormone replacement therapy; Z79.899 Other long term (current) drug therapy
CPT/HCPCS: 36415; 71046; 80053; 83735; 84439; 84443; 84484; 85025; 85610; 85730; 93005; 99285

== ENCOUNTER → 2019-04-06 | Outpatient (CLI) | payer BC | END | disposition home or self-care (01) | LOC: LABWHC1 10:03 | PROVIDERS: ATTEND Nurse Practitioner Family | DX: R07.9 Chest pain, unspecified (principal) | CPT/HCPCS: 36415; 85379 ==

== ENCOUNTER → 2019-04-07 | Outpatient (CLI) | payer BC ==
--- NOTE | 2019-04-08 12:40 | ECHOF ---
Referral Reason:R07.9 Chest pain MEASUREMENTS -------- HEIGHT: 157.5 cm WEIGHT: 108.9 kg BP: 135/63 RVIDd: 2.9 cm (< 3.3) IVSd: 1.0 cm (0.6 - 1.1) LVIDd: 4.6 cm (3.9 - 5.3) LVPWd: 1.0 cm (0.6 - 1.1) IVSs: 1.7 cm LVIDs: 2.8 cm LVPWs: 1.6 cm LA Diam: 3.7 cm (2.7 - 3.8) LAESV Index (A-L): 25.60 ml/m Ao Diam: 2.8 cm (2.0 - 3.7) AV Cusp: 2.2 cm (1.5 - 2.6) EPSS: 0.8 cm MV E Gume: 1.00 m/s MV DecT: 179 ms MV A Gume: 0.79 m/s MV E/A Ratio: 1.26 RAP: 5.00 mmHg RVSP: 30.21 mmHg MV EF SLOPE: 72.46 mm/s (70 - 150) MV EXCURSION: 1.19 cm (> 18.000) FINDINGS -------- Sinus rhythm. This was a technically adequate study. The left ventricular size is normal. Left ventricular wall thickness is normal. Overall left vent ricular systolic function is normal with, an EF between 60 - 65 %. The right ventricle is normal in size. Normal LA size by volume 22+/-6 ml/m2. The right atrium is normal in size. The aortic valve is trileaflet and appears structurally normal. The mitral valve is normal. Mild tricuspid regurgitation present. Right ventricular systolic pressure is normal at < 35 mmHg. Trace/mild (physiologic) pulmonic regurgitation. The aortic root size is normal. Normal inferior vena cava with normal inspiratory collapse consistent with estimated right atrial pre ssure of 5 mmHg. There is no pericardial effusion. CONCLUSIONS -------- 1. Sinus rhythm. 2. This was a technically adequate study. 3. The left ventricular size is normal. 4. Left ventricular wall thickness is normal. 5. Overall left ventricular systolic function is normal with, an EF between 60 - 65 %. 6. The right ventricle is normal in size. 7. Normal LA size by volume 22+/-6 ml/m2. 8. The right atrium is normal in size. 9. The aortic valve is trileaflet and appears structurally normal. 10. The mitral valve is normal. 11. Mild tricuspid regurgitation present. 12. Right ventricular systolic pressure is normal at < 35 mmHg. 13. Trace/mild (physiologic) pulmonic regurgitation. 14. The aortic root size is normal. 15. Normal inferior vena cava with normal inspiratory collapse consistent with estimated right atrial pressure of 5 mmHg. 16. There is no pericardial effusion. MATCHER: SCAR Brand
== END | disposition home or self-care (01) ==
LOC: RADECHMAIN 13:46
PROVIDERS: ATTEND Family Medicine
DX: I07.1 Rheumatic tricuspid insufficiency (principal); I37.1 Nonrheumatic pulmonary valve insufficiency; R07.9 Chest pain, unspecified
CPT/HCPCS: 93306

== ENCOUNTER → 2019-08-07 | Outpatient (CLI) | payer BC | END | disposition home or self-care (01) | LOC: LABWHC1 07:58 | PROVIDERS: ATTEND Internal Medicine Endocrinology, Diabetes & Metabolism | DX: E03.8 Other specified hypothyroidism (principal) | CPT/HCPCS: 36415; 84443 ==

== ENCOUNTER → 2019-11-24 | Outpatient (CLI) | payer BC | END | disposition home or self-care (01) | LOC: LABWHC1 10:19 | PROVIDERS: ATTEND Internal Medicine Endocrinology, Diabetes & Metabolism | DX: E03.8 Other specified hypothyroidism (principal) | CPT/HCPCS: 36415; 84443 ==

== ENCOUNTER → 2020-06-16 | Outpatient (CLI) | payer BC | END | disposition home or self-care (01) | LOC: LABWHC1 07:53 | PROVIDERS: ATTEND Internal Medicine Endocrinology, Diabetes & Metabolism | DX: E03.8 Other specified hypothyroidism (principal) | CPT/HCPCS: 36415; 84443 ==

== ENCOUNTER → 2021-01-26 | Outpatient (CLI) | payer BC | END | disposition home or self-care (01) | LOC: LABWHC1 08:01 | PROVIDERS: ATTEND Internal Medicine Endocrinology, Diabetes & Metabolism | DX: E03.8 Other specified hypothyroidism (principal) | CPT/HCPCS: 36415; 84443 ==

== ENCOUNTER 2021-06-08 08:02 | Emergency (ER) | payer BC ==
[2021-06-08] MEDS ORDERED: ASPIRIN 81 MG PO STA (08:18)
--- NOTE | 2021-06-08 08:27 | ED ---
Chest Pain HPI - General Chief Complaint: Chest Pain Stated Complaint: Jaw, shoulder, arm pain Time Seen by Provider: 06/08/21 08:10 Source: patient Mode of arrival: ambulatory Limitations: no limitations - History of Present Illness Initial Comments: Patient is a 41-year-old female with history of hypertension, thyroid disorder, presenting to the emergency Department with complaints of pain in the left side of her jaw and the left side of her neck that does radiate down her left arm. She states it started about 2-3 days ago, did get better but then yesterday came back and has been constant. She states she is leaving for complications tomorrow and wants to make sure she is okay. She denies any chest pain, no shortness of breath, no abdominal pain, no nausea or vomiting. She states it does not feel tender to the touch. She does have history of cardiomyopathy after her last delivery. She does follow with cardiology, she recently had a ec ho about 1-2 weeks ago, has yet to hear the results of it. She denies history of blood clots, no recent travel. She denies any recent medication changes. No recent fever or chills. She has no further complaints at this time. Upon arrival to the ER, her pulse is 110, rest of vitals within normal limits. - Related Data Home Medications Medication Instructions Recorded Confirmed Lisinopril-Hctz 10-12.5 mg 1 tab PO DAILY 03/03/17 03/06/17 [Zestoretic 10-12.5] Levothyroxine Sodium [Synthroid] 75 mcg PO DAILY 03/06/17 03/06/17 Pnv,Calcium 72/Iron/Folic Acid 1 tab PO DAILY 03/06/17 03/06/17 [ Plus Tablet] Previous Rx's Medication Instructions Recorded Ranitidine HCl [Zantac] 150 mg PO BID #30 tab 03/07/17 Allergies Allergy/AdvReac Type Severity Reaction Status Date / Time No Known Allergies Allergy Verified 06/08/21 08:03 Review of Systems ROS Statement: Those systems with pertinent positive or pertinent negative responses have been documented in the HPI. ROS Other: All systems not noted in ROS Statement are negative. EKG Findings - EKG Comments: EKG Findings:: Sinus tach otherwise normal ECG, no signs of acute ST segment elevation. Similar to previous on 03/31/2019. Ventricular rate 105, CT interval 132, QT 358. Past Medical History Past Medical History: Hypertension, Thyroid Disorder Additional Past Medical History / Comment(s): cardiomyopathy, History of Any Multi-Drug Resistant Organisms: None Reported Past Surgical History: No Surgical Hx Reported Additional Past Surgical History / Comment(s): breast reduction 2010, cold knife conization of the cervix 2004, Past Anesthesia/Blood Transfusion Reactions: Postoperative Nausea & Vomiting (PONV) Additional Past Anesthesia/Blood Transfusion Reaction / Comment(s): Severe PONV Past Psychological History: No Psychological Hx Reported Smoking Status: Never smoker Past Alcohol Use History: Occasional Past Drug Use History: None Reported - Past Family History Father Family Medical History: Hypertension Mother Family Medical History: Hypertension General Exam - General Exam Comments Initial Comments: GENERAL: Patient is well-developed and well-nourished. Patient is nontoxic and in no acute distress. HEAD: Atraumatic, normocephalic. EYES: Pupils equal round and reactive to light, extraocular movements intact, sclera anicteric, conjunctiva are normal. Eyelids were unremarkable. ENT: TMs normal, nares patent, oropharynx clear without exudates. Moist mucous membranes. NECK: Normal range of motion, supple without lymphadenopathy or JVD. LUNGS: Unlabored respirations. Breath sounds clear to auscultation bilaterally and equal. No wheezes rales or rhonchi. HEART: Regular rate and rhythm without murmurs, rubs or gallops. ABDOMEN: Soft, nontender, normoactive bowel sounds. No guarding, no rebound. No masses appreciated. : Deferred MUSCULOSKELETAL: Normal extremities with adequate strength and normal range of motion, no pitting or edema. No clubbing or cyanosis. NEUROLOGICAL: Patient is alert and oriented x 3. Motor and sensory are also intact. Cranial nerves II through XII grossly intact. Symmetrical smile. Normal speech, normal gait. PSYCH: Normal mood, normal affect. SKIN: Warm, Dry, normal turgor, no rashes or lesions noted. Limitations: no limitations Course Vital Signs 06/08/21 06/08/21 06/08/21 08:03 08:20 09:26 Temperature 97.5 F L Pulse Rate 110 H 99 Respiratory 18 16 18 Rate Blood Pressure 127/79 131/84 O2 Sat by Pulse 97 96 Oximetry Chest Pain [facility] Patient is a 41-year-old female with history of hypertension, thyroid disease, presenting for pain in the left side of her neck, left jaw and left arm over the past 2 days. No injuries that she can think of. No chest pain or shortness of breath today. She was a little tachycardia upon arrival, rest of vitals were normal. Labs are all within normal limits including a negative troponin, negative d-dimer. Some mild transaminitis. Chest x-ray shows no acute process. I discussed these findings with the patient. I discussed options for the patient's involving admitted to observation overnight with cardiac consult however patient states she is leaving for vacation tonight and does not want to do that as she just saw her air chipper for an echo a few weeks ago. She does agree to a second troponin, which is also normal. Patient wishes to be discharged home. She'll follow up with her air chipper and primary care physician. Return parameters were discussed with the patient she verbalized understanding. Case discussed with Dr. Butts. Disposition Clinical Impression: Neck pain on left side, Jaw pain Disposition: HOME SELF-CARE Condition: Stable Instructions (If sedation given, give patient instructions): Normal Exam (ED) Additional Instructions: Please return to the Emergency Department if symptoms worsen or any other concerns. Recommend following up with your primary care physician and air chipper as d iscussed. Is patient prescribed a controlled substance at d/c from ED?: No Referrals: Leon Pfeiffer III, MD [Primary Care Provider] - 1-2 days Time of Disposition: 11:26
[2021-06-08 09:08] LABS: ALT 77 U/L (4-34); AST 52 U/L (14-36); African American GFR (CKD) >90 (>60 ml/min/1.73 sqM); Albumin 4.2 g/dL (3.5-5.0); Alkaline Phosphatase 95 U/L (38-126); Anion Gap 10 mmol/L; Anisocytosis Slight; Basophils % (A) 1 %; Blood Urea Nitrogen 7 mg/dL (7-17); Calcium 9.7 mg/dL (8.4-10.2); Carbon Dioxide 26 mmol/L (22-30); Chloride 103 mmol/L (98-107); Eosinophils # (A) 0.1 k/uL (0-0.7); Eosinophils % (A) 2 %; Glucose 132 mg/dL (74-99); HCT 34.5 % (34.0-46.0); HGB 10.4 gm/dL (11.4-16.0); Hypochromasia Marked; Lymphocytes # (A) 1.3 k/uL (1.0-4.8); Lymphocytes % (A) 25 %; MCH 21.3 pg (25.0-35.0); MCHC 30.3 g/dL (31.0-37.0); MCV 70.2 fL (80.0-100.0); Magnesium 2.3 mg/dL (1.6-2.3); Mean Platelet Volume 7.8; Microcytosis Marked; Monocytes # (A) 0.3 k/uL (0-1.0); Monocytes % (A) 6 %; Neutrophils # (A) 3.5 k/uL (1.3-7.7); Neutrophils % (A) 64 %; Non-African American GFR(CKD) >90 (>60 ml/min/1.73 sqM); Platelet Count 295 k/uL (150-450); Poikilocytosis Slight; Potassium 3.8 mmol/L (3.5-5.1); RDW 18.1 % (11.5-15.5); Sodium 139 mmol/L (137-145); Total Bilirubin 0.5 mg/dL (0.2-1.3); Total Protein 6.9 g/dL (6.3-8.2); WBC 5.4 k/uL (3.8-10.6)
[2021-06-08 09:09] LABS: D-Dimer 0.18 mg/L FEU (<0.60); Partial Thromboplastin Time 22.8 sec (22.0-30.0); Prothrombin Time 10.3 sec (9.0-12.0)
--- NOTE | 2021-06-08 09:19 | XR ---
EXAMINATION TYPE: XR chest 2V DATE OF EXAM: 06/08/2021 CLINICAL HISTORY: Chest Pain. TECHNIQUE: Frontal and lateral view of the chest. COMPARISON: 03/31/2019 FINDINGS: The cardiomediastinal silhouette is within normal limits for size. Pulmonary vasculature i s normal. Minimal subsegmental atelectasis versus scarring of the left lingula. No acute focal air sp wendy opacity. No pleural effusion. No pneumothorax seen. No acute displaced osseous fracture. IMPRESSION: No acute cardiopulmonary process.
[2021-06-08 09:27] VITALS: RESP 18
[2021-06-08 11:38] VITALS: BP 115/73; PULSE 89; TEMP 98.6
== END 2021-06-08 11:35 | disposition home or self-care (01) ==
LOC: EC 08:02
DX: M54.2 Cervicalgia (principal); R68.84 Jaw pain; I10 Essential (primary) hypertension; E07.9 Disorder of thyroid, unspecified
CPT/HCPCS: 36415; 71046; 80053; 83735; 84484; 85025; 85379; 85610; 85730; 93005; 99284

== ENCOUNTER → 2021-08-03 | Outpatient (CLI) | payer BC | END | disposition home or self-care (01) | LOC: LABWHC1 08:14 | PROVIDERS: ATTEND Internal Medicine Endocrinology, Diabetes & Metabolism | DX: E03.8 Other specified hypothyroidism (principal) | CPT/HCPCS: 36415; 84443 ==

== ENCOUNTER → 2021-11-22 | Outpatient (CLI) | payer BC ==
--- NOTE | 2021-11-27 10:39 | MM ---
Reason for exam: screening (asymptomatic). Last mammogram was performed 3 years and 8 months ago. History: Reductions of both breasts, 2010. Took hormonal contraceptives for 8 years beginning at age 19. Physical Findings: A clinical breast exam by your physician is recommended on an annual basis and results should be correlated with mammographic findings. MG 3D Screening Mammo W/Cad Bilateral CC and MLO view(s) were taken. XCCL view(s) were taken of the left breast. Prior study comparison: March 19, 2018, bilateral MG 3d screening mammo w/cad. The breast tissue is almost entirely fat. A couple small benign oil cyst calcifications. No significant changes when compared with prior studies. ASSESSMENT: Negative, BI-RAD 1 RECOMMENDATION: Routine screening mammogram of both breasts in 1 year.
== END | disposition home or self-care (01) ==
LOC: RADMAMWWP 09:33
PROVIDERS: ATTEND Obstetrics & Gynecology
DX: Z12.31 Encounter for screening mammogram for malignant neoplasm of breast (principal)
CPT/HCPCS: 77063; 77067

== ENCOUNTER → 2021-11-27 | Outpatient (CLI) | payer BC ==
--- NOTE | 2021-11-27 08:36 | US ---
EXAMINATION TYPE: US abdomen complete DATE OF EXAM: 11/27/2021 COMPARISON: Ultrasound abdomen limited February 13, 2017 CLINICAL HISTORY: R10.12 Left upper quadrant pain.chest pain with referred pain to [facility] on and off EXAM MEASUREMENTS: Liver Length: 17.3 cm Gallbladder Wall: 0.2 cm CBD: 0.5 cm Spleen: 13.6 cm Right Kidney: 10.0 x 4.4 x 5.0 cm Left Kidney: 11.4 x 4.9 x 5.3 cm Pancreas: wnl Liver: 4.7 x 3.8 x 3.7cm left lobe Gallbladder: wnl Evidence for sonographic Marquez's sign: no CBD: wnl Spleen: slightly enlarged Right Kidney: wnl Left Kidney: wnl Upper IVC: wnl Abd Aorta: wnl The liver is homogenous. Oval thin-walled 4.7 cm cyst in the deep left hepatic lobe slightly larger from 2017 study. The intrahepatic portion of the IVC and visualized abdominal aorta are within normal limits. There is no evidence of shadowing mobile cholelithiasis. Common bile duct is unremarkable. The visualized portions of the pancreas are homogenous. The spleen is highly enlarged. No suspicio us focal intrasplenic lesion. Kidneys are symmetric and free of hydronephrosis. No renal lesions are seen on images saved. IMPRESSION: Mild splenomegaly noted.
== END | disposition home or self-care (01) ==
LOC: RADUSWWP 07:39
PROVIDERS: ATTEND Family Medicine
DX: R16.1 Splenomegaly, not elsewhere classified (principal)
CPT/HCPCS: 76700

== ENCOUNTER → 2022-04-20 | Outpatient (CLI) | payer BC | END | disposition home or self-care (01) | LOC: LABWHC1 12:19 | PROVIDERS: ATTEND Internal Medicine Endocrinology, Diabetes & Metabolism | DX: E03.8 Other specified hypothyroidism (principal) | CPT/HCPCS: 36415; 84443 ==

== ENCOUNTER → 2022-11-06 | Outpatient (CLI) | payer BC | END | disposition home or self-care (01) | LOC: LABWHC1 08:29 | PROVIDERS: ATTEND Internal Medicine Endocrinology, Diabetes & Metabolism | DX: E03.8 Other specified hypothyroidism (principal) | CPT/HCPCS: 36415; 84443 ==

== ENCOUNTER → 2023-03-19 | Outpatient (CLI) | payer BC ==
--- NOTE | 2023-03-20 07:33 | MM ---
Reason for Exam: Screening (asymptomatic). Last mammogram was performed 1 year(s) and 4 month(s) ago. Patient History: Menarche at age 16. First Full-Term at age 30. Patient has history of breast feeding. Hormonal Contraceptives for 8 years from age 19 until age 27. 2011, Bilateral Reduction. Last menstrual period: 03/14/2023 Risk Values: Violetta 5 year model risk: 0.6%. NCI Lifetime model risk: 10.1%. Prior Study Comparison: 03/19/2018 Bilateral Screening Mammogram, [facility]. 11/22/2021 Bilateral Screening Mammogram, [facility]. Tissue Density: The breast tissue is almost entirely fat. Findings: Analyzed By CAD. Right breast biopsy clip. There is no suspicious group of microcalcifications or new suspicious mass in either breast. Overall Assessment: Negative, BI-RAD 1 Management: Screening Mammogram of both breasts in 1 year. A clinical breast exam by your physician is recommended on an annual basis and results should be correlated with mammographic findings. [facility] will attempt to contact patient to return for supplemental views and ultrasound if indicated. Electronically signed and approved by: John Encinas DO
== END | disposition home or self-care (01) ==
LOC: RADMAMWWP 07:01
PROVIDERS: ATTEND Obstetrics & Gynecology
DX: Z12.31 Encounter for screening mammogram for malignant neoplasm of breast (principal)
CPT/HCPCS: 77063; 77067

== ENCOUNTER → 2023-05-11 | Outpatient (CLI) | payer BC | END | disposition home or self-care (01) | LOC: LABWHC1 08:55 | PROVIDERS: ATTEND Internal Medicine Endocrinology, Diabetes & Metabolism | DX: E03.8 Other specified hypothyroidism (principal) | CPT/HCPCS: 36415; 84443 ==

== ENCOUNTER → 2024-02-25 | Outpatient (CLI) | payer BC | END | disposition home or self-care (01) | LOC: LABWHC1 07:43 | PROVIDERS: ATTEND Internal Medicine Endocrinology, Diabetes & Metabolism | DX: E03.8 Other specified hypothyroidism (principal) | CPT/HCPCS: 36415; 84443 ==

== ENCOUNTER → 2024-03-31 | Outpatient (CLI) | payer BC ==
--- NOTE | 2024-04-01 08:25 | MM ---
Reason for Exam: Screening (asymptomatic). Last mammogram was performed 1 year(s) and 1 month(s) ago. Patient History: Menarche at age 16. First Full-Term at age 30. Patient has history of breast feeding. Hormonal Contraceptives for 8 years from age 19 until age 27. 2011, Bilateral Reduction. Last menstrual period: 03/25/2024 Risk Values: Violetta 5 year model risk: 0.7%. NCI Lifetime model risk: 10.0%. Prior Study Comparison: 03/19/2018 Bilateral Screening Mammogram, [facility]. 11/22/2021 Bilateral Screening Mammogram, [facility]. 03/19/2023 Bilateral MG 3D screening mammo w/cad, [facility]. Tissue Density: There are scattered areas of fibroglandular density. Findings: Analyzed By CAD. There is no suspicious group of microcalcifications or new suspicious mass in either breast. Benign appearing calcifications. Overall Assessment: Benign, BI-RAD 2 Management: Screening Mammogram of both breasts in 1 year. . Patient should continue monthly self-breast exams. A clinical breast exam by your physician is recommended on an annual basis. This exam should not preclude additional follow-up of suspicious palpable abnormalities. Note on Violetta scores and lifetime risk: 1. A Violetta score greater than 3% is considered moderate risk. If this is the case, consider specialist referral to assess eligibility for a risk reducing agent. 2. If overall lifetime risk for the development of breast cancer is 20% or higher, the patient may qualify for future screening with alternating mammogram and breast MRI. Electronically signed and approved by: David Zaragoza M.D. Radiologis
== END | disposition home or self-care (01) ==
LOC: RADMAMWWP 09:02
PROVIDERS: ATTEND Obstetrics & Gynecology
DX: Z12.31 Encounter for screening mammogram for malignant neoplasm of breast (principal)
CPT/HCPCS: 77063; 77067

== ENCOUNTER → 2024-06-19 | Outpatient (CLI) | payer BC | END | disposition home or self-care (01) | LOC: LABWHC1 09:46 | PROVIDERS: ATTEND Internal Medicine Endocrinology, Diabetes & Metabolism | DX: E03.8 Other specified hypothyroidism (principal) | CPT/HCPCS: 36415; 84443 ==

== ENCOUNTER → 2024-10-14 | Outpatient (CLI) | payer BC | END | disposition home or self-care (01) | LOC: LABWHC1 10:41 | PROVIDERS: ATTEND Internal Medicine Endocrinology, Diabetes & Metabolism | DX: E03.8 Other specified hypothyroidism (principal) | CPT/HCPCS: 36415; 84443 ==

== ENCOUNTER → 2025-02-17 | Outpatient (CLI) | payer BC | END | disposition home or self-care (01) | LOC: LABWHC1 07:43 | PROVIDERS: ATTEND Internal Medicine Endocrinology, Diabetes & Metabolism | DX: E03.8 Other specified hypothyroidism (principal) | CPT/HCPCS: 36415; 84443 ==